=== PATIENT | female | born 1980 | race Caucasian/White ===

== ENCOUNTER 2016-09-15 14:34 | Emergency (ER) | payer OTHER ==
[2016-09-15 16:11] VITALS: BP 124/80
--- NOTE | 2016-09-15 16:16 | UC ---
Dental HPI - HPI Summary HPI Summary: worsening right upper and lower back molar dental pain---has an appointment with [facility] in 4 days - History of Current Complaint Chief Complaint: UCDentalProblem Stated Complaint: TOOTH,JAW,SINUS PAIN Time Seen by Provider: 09/15/16 16:04 Hx Obtained From: Patient Hx Last Menstrual Period: September 15 ?: No Onset/Duration: Sudden Onset, Lasting Days, Still Present Severity: Moderate Pain Intensity: 6 Pain Scale Used: 0-10 Numeric Aggravating: Heat, Cold, Chewing Related History: Previous Dental Care on Same Tooth - Allergies/Home Medications Allergies/Adverse Reactions: Allergies Allergy/AdvReac Type Severity Reaction Status Date / Time Adhesive Tape Allergy Rash Verified 07/11/16 12:02 NICOTINE PATCHES Allergy Rash Uncoded 07/11/16 12:02 Home Medications: Home Medications Buprenorphine HCl-Naloxone HCl [Suboxone 12-3 mg] 1 mis SL 09/15/16 [History] Divalproex Sodium [Depakote] 500 mg PO 09/15/16 [History] Levetiracetam [Keppra 500] 500 mg PO 09/15/16 [History] PMH/Surg Hx/FS Hx/Imm Hx Previously Healthy: No Endocrine History Of: Denies: Diabetes, Thyroid Disease Cardiovascular History Of: Denies: Cardiac Disorders, Hypertension, Pacemaker/ICD Respiratory History Of: Reports: Asthma Denies: COPD GI/ History Of: Denies: Ulcer, Renal Disease Neurological History Of: Reports: Seizures Denies: Dementia Psychological History Of: Reports: Anxiety, Depression, Bipolar Disorder Other History Of: Negative For: Anticoagulant Therapy - Surgical History Surgical History: Yes Surgery Procedure, Year, and Place: 3 C sections. TUBAL LIGATION - Family History Known Family History: Positive: Other - positive for substance abuse and schizophrenia - Social History Occupation: Unemployed Lives: Long-Term Alcohol Use: Occasionally Substance Use Type: Cocaine, Heroin, Marijuana Substance Use Comment - Amount & Last Used: rehab Smoking Status (MU): Light Every Day Tobacco Smoker Type: Cigarettes Amount Used/How Often: 1 ppd, 1-2 CIGS IN LAST FEW WEEKS Length of Time of Smoking/Using Tobacco: 3 years Have You Smoked in the Last Year: Yes Household Exposure Type: Cigarettes - Immunization History Most Recent Influenza Vaccination: unsure Most Recent Tetanus Shot: unsure Most Recent Pneumonia Vaccination: none Review of Systems Constitutional: Negative Skin: Negative Eyes: Negative ENT: Dental Pain Respiratory: Negative Cardiovascular: Negative Gastrointestinal: Negative Genitourinary: Negative Motor: Negative Neurovascular: Negative Musculoskeletal: Negative Neurological: Negative Psychological: Negative All Other Systems Reviewed And Are Negative: Yes Physical Exam Triage Information Reviewed: Yes Appearance: Well-Appearing, Well-Nourished, Pain Distress Vital Signs: Initial Vital Signs Temp 97.0 F 09/15/16 15:46 Pulse 84 09/15/16 15:46 Resp 16 09/15/16 15:46 BP 141/115 09/15/16 15:46 Pulse Ox 100 09/15/16 15:46 Vital Signs Reviewed: Yes Eye Exam: Normal Eyes: Positive: Conjunctiva Clear ENT Exam: Normal ENT: Positive: Normal ENT inspection, Hearing grossly normal, Pharynx normal, TMs normal. Negative: Nasal congestion, Nasal drainage, Tonsillar swelling, Muffled/hoarse voice Dental Exam: Other Dental: Positive: Gross Decay/Caries @ - right upper and lower molars Neck exam: Normal Neck: Positive: Supple, Nontender, No Lymphadenopathy Respiratory Exam: Normal Respiratory: Positive: Chest non-tender, Lungs clear, Normal breath sounds, No respiratory distress, No accessory muscle use Cardiovascular Exam: Normal Cardiovascular: Positive: RRR, No Murmur, Pulses Normal, Brisk Capillary Refill Abdominal Exam: Normal Abdomen Description: Positive: Nontender, No Organomegaly Bowel Sounds: Positive: Present Musculoskeletal Exam: Normal Musculoskeletal: Positive: Strength Intact, ROM Intact, No Edema Neurological Exam: Normal Neurological: Positive: Alert, Muscle Tone Normal Psychological Exam: Normal Skin Exam: Normal Dental Complaint Course/Dx - Course Course Of Treatment: amoxicillin and Ibuprofen, warm compress, follow with dentist as planned next week - Differential Dx/Diagnosis Differential Diagnosis/Dx: Dental Abscess, Dental Caries, Fractured Tooth, Odontogenic Pain, Peritonsillar Abcess Provider Diagnoses: Dental caries, nicotine dependant, substance aduse disorder in early remission Discharge - Discharge Plan Condition: Stable Disposition: HOME Prescriptions: Amoxicillin CAP* [Amoxicillin 500 MG CAP*] 500 mg PO TID #30 cap Ibuprofen TAB* [Motrin TAB* 800 MG] 800 mg PO Q8H PRN #40 tab PRN Reason: Pain Patient Education Materials: Dental Abscess (ED), Dental Caries (ED) Referrals: Mahendra Quintana MD [Primary Care Provider] - Additional Instructions: Follow at [facility] on Sunday as Planned
== END 2016-09-15 16:25 | disposition home or self-care (01) ==
LOC: UCEAST 14:34
DX: K02.9 Dental caries, unspecified (principal); F12.90 Cannabis use, unspecified, uncomplicated; F14.90 Cocaine use, unspecified, uncomplicated; F11.90 Opioid use, unspecified, uncomplicated; J45.909 Unspecified asthma, uncomplicated; R56.9 Unspecified convulsions; F17.210 Nicotine dependence, cigarettes, uncomplicated; Z91.048 Other nonmedicinal substance allergy status
CPT/HCPCS: 99212; G0463

== ENCOUNTER 2017-01-22 13:31 | Emergency (ER) | payer OTHER ==
[2017-01-22] MEDS ORDERED: Clindamycin CAP* 150 MG PO ONE (15:39)
--- NOTE | 2017-01-22 15:40 | UC ---
Dental HPI - HPI Summary HPI Summary: 36 y/o female presents to the urgent care c/o dental pain s/p molar extraction on 01/18/2017. Pt states her Dentist didn't Rx any ABX. This past Sunday she had fever of 101F, she took ibuprofen to alleviate symptoms. Her pain is mild today 4/10 associated w/ a AQUINO, However, she has a foul smell in her mouth w/ a yellowish discharge where molar was taken out . Pt denies SOB, chest pain, N/V/ D . Pt has not other complains - History of Current Complaint Chief Complaint: UCGeneralIllness Stated Complaint: DENTAL COMPLAINT Time Seen by Provider: 01/22/17 15:23 Hx Obtained From: Patient Hx Last Menstrual Period: 01/05/17 ?: No Onset/Duration: Gradual Onset, Lasting Days, Still Present Severity: Moderate Pain Intensity: 4 Pain Scale Used: 0-10 Numeric Aggravating: Chewing Alleviating: OTC Meds - Allergies/Home Medications Allergies/Adverse Reactions: Allergies Allergy/AdvReac Type Severity Reaction Status Date / Time Adhesive Tape Allergy Rash Verified 01/22/17 14:32 NICOTINE PATCHES Allergy Rash Uncoded 01/22/17 14:32 PMH/Surg Hx/FS Hx/Imm Hx Previously Healthy: Yes Respiratory History: Asthma Neurological History: Seizures Other History Of: Negative For: Anticoagulant Therapy - Surgical History Surgical History: Yes Surgery Procedure, Year, and Place: 3 C sections. TUBAL LIGATION - Family History Known Family History: Positive: Diabetes, Other Family History: positive for substance abuse and schizophrenia - Social History Occupation: Employed Full-time Lives: With Family Alcohol Use: Occasionally Substance Use Type: Cocaine, Heroin, Marijuana Substance Use Comment - Amount & Last Used: rehab Smoking Status (MU): Light Every Day Tobacco Smoker Type: Cigarettes Amount Used/How Often: 1 ppd, 1-2 CIGS IN LAST FEW WEEKS Length of Time of Smoking/Using Tobacco: 3 years Have You Smoked in the Last Year: Yes Household Exposure Type: Cigarettes - Immunization History Most Recent Influenza Vaccination: unsure Most Recent Tetanus Shot: unsure Most Recent Pneumonia Vaccination: none Review of Systems Constitutional: Negative Skin: Negative Eyes: Negative ENT: Other - Dental pain s/p molar extration Respiratory: Negative Cardiovascular: Negative Gastrointestinal: Negative Genitourinary: Negative Motor: Negative Neurovascular: Negative Musculoskeletal: Negative Neurological: Negative Psychological: Negative All Other Systems Reviewed And Are Negative: Yes Physical Exam Triage Information Reviewed: Yes Appearance: Well-Appearing, No Pain Distress, Well-Nourished, Obese Vital Signs: Initial Vital Signs Temp 97.2 F 01/22/17 14:27 Pulse 81 01/22/17 14:27 Resp 19 01/22/17 14:27 BP 108/76 01/22/17 14:27 Pulse Ox 98 01/22/17 14:27 Vital Signs Reviewed: Yes Eye Exam: Normal Eyes: Positive: Conjunctiva Clear - PERRLA, EOMI, fundi grossly normal ENT Exam: Normal ENT: Positive: Normal ENT inspection, Hearing grossly normal, Pharynx normal, TMs normal Dental: Positive: Percussion Tenderness @ - Pt with poor dental hygiene. RT upper jaw w/ mild erythema,swelling and mild purulent drainage at the site of molar #3 extration in the RT upper gum, tender to palpation. Molar #30 is fracture w/ gross decay in the RT lower gum. non tender to palpation or swelling. Neck exam: Normal Neck: Positive: Supple, Nontender, No Lymphadenopathy Respiratory Exam: Normal Respiratory: Positive: Chest non-tender, Lungs clear, Normal breath sounds Cardiovascular Exam: Normal Cardiovascular: Positive: RRR, No Murmur, Pulses Normal Abdominal Exam: Normal Abdomen Description: Positive: Nontender, No Organomegaly, Soft. Negative: CVA Tenderness (R), CVA Tenderness (L) Bowel Sounds: Positive: Present Musculoskeletal Exam: Normal Musculoskeletal: Positive: Strength Intact, ROM Intact, No Edema Neurological Exam: Normal Psychological Exam: Normal Skin Exam: Normal Dental Complaint Course/Dx - Course Course Of Treatment: . 36 y/o female presents to the urgent care c/o dental pain s/p molar extraction on 01/18/2017. Pt states her Dentist didn't Rx any ABX. This past Sunday she had fever of 101F, she took ibuprofen to alleviate symptoms. Her pain is mild today 4/10 associated w/ a AQUINO, However, she has a foul smell in her mouth w/ a yellowish discharge where molar was taken out . Pt denies SOB, chest pain, N/V/D Hx obtained. PE abnormal findings: Pt with poor dental hygiene. RT upper jaw w/ mild erythema,swelling and mild purulent drainage at the site of molar #3 extration in the RT upper gum, tender to palpation. Molar #30 is fracture w/ gross decay in the RT lower gum. non tender to palpation or swelling. PT Rx Clindamycin PO and Ibuprofen Po to alleviate symptoms. Advise to f/u with her dentist as soon as possible for further treatment. Pt understood and agreed. - Differential Dx/Diagnosis Differential Diagnosis/Dx: Dental Abscess, Dental Caries, Fractured Tooth, Gingivitis, Peridontic Disease, Post Extraction Pain Provider Diagnoses: 1- Acute dental pain s/p molar extraction Discharge - Discharge Plan Condition: Stable Disposition: HOME Prescriptions: Clindamycin Cap(NF) [Clindamycin Cap 300 mg Cap(NF)] 300 mg PO TID #21 cap Ibuprofen TAB* [Motrin TAB* 800 MG] 800 mg PO Q6H #20 tab Patient Education Materials: Toothache (ED) Referrals: Mahendra Quintana MD [Medical Doctor] - 1 Week Additional Instructions: Please take full course of antibiotic to avoid resistance. Take ibuprofen as instructed after meals to alleviate pain and swelling. Please f/u with your Dentist as soon as possible. If develop fever, chest pain despite taking medications please go to the ER immediately .
[2017-01-22 15:48] VITALS: BP 111/79
== END 2017-01-22 16:00 | disposition home or self-care (01) ==
LOC: UCEAST 13:31
DX: K08.89 Other specified disorders of teeth and supporting structures (principal); J45.909 Unspecified asthma, uncomplicated; R56.9 Unspecified convulsions; F14.90 Cocaine use, unspecified, uncomplicated; F12.90 Cannabis use, unspecified, uncomplicated; F11.90 Opioid use, unspecified, uncomplicated; F17.210 Nicotine dependence, cigarettes, uncomplicated
CPT/HCPCS: 99212; A9270-GY; G0463

== ENCOUNTER 2017-02-24 16:28 | Emergency (ER) | payer OTHER ==
[2017-02-24 18:02] VITALS: BP 114/70
[2017-02-24 20:11] LABS: Hematocrit 41 % (35-47); Hemoglobin 14.2 g/dl (12.0-16.0); Mean Corpuscular HGB Conc 35 g/dl (31-36); Mean Corpuscular Hemoglobin 31 pg (27-31); Mean Corpuscular Volume 91 fL (80-97); Mean Platelet Volume 8 um3 (7.4-10.4); Red Cell Distribution Width 14 % (10.5-15); White Blood Count 8.3 10^3/ul (3.5-10.8)
[2017-02-24 20:22] LABS: Urine Bacteria Absent (Absent); Urine Bilirubin Negative (Negative); Urine Glucose Negative (Negative); Urine Nitrite Negative (Negative)
[2017-02-24 20:25] LABS: ALT 47 U/L (7-52); AST 37 U/L (13-39); Alkaline Phosphatase 70 U/L (34-104); Anion Gap 5 mmol/L (2-11); Blood Urea Nitrogen 12 mg/dL (6-24); CO2 Carbon Dioxide 26 mmol/L (22-32); Calcium 9.2 mg/dL (8.6-10.3); Chloride 104 mmol/L (101-111); EGFR African American 137.5 (>60); EGFR Non-African American 106.9 (>60); Globulin 3.1 g/dL (2-4); Glucose 80 mg/dL (70-100); Potassium 4.1 mmol/L (3.5-5.0); Sodium 135 mmol/L (133-145); Total Protein 7.1 g/dL (6.4-8.9)
--- NOTE | 2017-02-24 20:29 | ED ---
GI/ HPI - HPI Summary HPI Summary: Pt here w/ vaginal bleeding x 2 weeks. Started as light bleeding which progressed to a heavier vaginal flow last night at midnight and finally slowed today around 16:00. Reports she passed a gold ball sized blood clot and was going through a pad and tampon every 20 minutes. Still has heavy bleeding but slowed to a super tampon and pad every hour now. H/o heavy bleeding in the past - took control for 2 months and was "good for a few years after that". She also reports mood swings, worse before period then normal once she starts and hotflashes. [facility] suggested hysterectomy which she did not want to try yet. Has not had U/S. Would be open to hormone therapy again. Family h/o both grandmother's going into early menopause and one requiring a uterine ablation which was successful. She herself is open to this. Denies ab pain, weakness, headache, chest pain. Has had some digestive issues recently and PCP has ordered a gallbladder U/S to assess. Her sx have been indigestion and alternating constipation w/ diarrhea. She denies nausea, vomiting. Had STD and testing as well as a pap smear last week at - all negative/normal as far as she knows. - History of Current Complaint Chief Complaint: EDGeneral Time Seen by Provider: 02/24/17 18:46 Stated Complaint: HEAVY VAG BLEEDING/CLOTS Hx Obtained From: Patient Hx Last Menstrual Period: 01/05/17 Pain Intensity: 5 - Allergy/Home Medications Allergies/Adverse Reactions: Allergies Allergy/AdvReac Type Severity Reaction Status Date / Time Adhesive Tape Allergy Rash Verified 02/24/17 17:22 NICOTINE PATCHES Allergy Rash Uncoded 02/24/17 17:22 PMH/Surg Hx/FS Hx/Imm Hx Previously Healthy: Yes Endocrine/Hematology History: Denies: Hx Anticoagulant Therapy, Hx Blood Disorders, Hx Blood Transfusions, Hx Diabetes, Hx Thyroid Disease, Hx Anemia, Hx Unexplained Bleeding, Hx Coagulopothy, Autoimmune Disease Cardiovascular History: Denies: Hx Hypertension, Hx Pacemaker/ICD Respiratory History: Reports: Hx Asthma Denies: Hx Chronic Obstructive Pulmonary Disease (COPD) GI History: Denies: Hx Ulcer History: Denies: Hx Renal Disease Sensory History: Denies: Hx Hearing Aid Neurological History: Reports: Hx Seizures Denies: Hx Dementia Psychiatric History: Reports: Hx Anxiety, Hx Attention Deficit Hyperactivity Disorder, Hx Depression, Hx Panic Disorder, Hx Post Traumatic Stress Disorder, Hx Community Mental Health Tx, Hx Bipolar Disorder, Hx of Violent Episodes Against Others, Hx Substance Abuse - suboxone x 11 months Denies: Hx Eating Disorder - Surgical History Surgery Procedure, Year, and Place: 3 C sections. TUBAL LIGATION - Immunization History Date of Tetanus Vaccine: unknown Infectious Disease History: No Infectious Disease History: Reports: Hx Hepatitis - hepatitis C Denies: Hx Clostridium Difficile, Hx Human Immunodeficiency Virus (HIV), Hx of Known/Suspected MRSA, Hx Shingles, Hx Tuberculosis, Hx Known/Suspected VRE, Hx Known/Suspected VRSA, History Other Infectious Disease, Traveled Outside the [place] in Last 30 Days - Family History Known Family History: Positive: Diabetes, Other Family History: positive for substance abuse and schizophrenia - Social History Lives: With Family Alcohol Use: Occasionally Hx Substance Use: Yes - h/o street drug use - sober x 11 months Substance Use Type: Reports: Prescribed Substance Use Comment - Amount & Last Used: suboxone Hx Tobacco Use: Yes Smoking Status (MU): Light Every Day Tobacco Smoker Type: Cigarettes Amount Used/How Often: 1 ppd, 1-2 CIGS IN LAST FEW WEEKS Length of Time of Smoking/Using Tobacco: 3 years Have You Smoked in the Last Year: Yes Review of Systems Constitutional: Other - see HPI Eyes: Negative Negative: Photophobia, Blurred Vision, Diplopia ENT: Negative Cardiovascular: Negative Respiratory: Negative Gastrointestinal: Other - see HPI Positive: see HPI Musculoskeletal: Negative Skin: Negative Neurological: Negative Psychological: Other - see HPI All Other Systems Reviewed And Are Negative: Yes Physical Exam Triage Information Reviewed: Yes Vital Signs On Initial Exam: Initial Vitals Temp Pulse Resp BP Pulse Ox 97.8 F 71 17 126/90 99 02/24/17 16:42 02/24/17 16:42 02/24/17 16:42 02/24/17 16:42 02/24/17 16:42 Vital Signs Reviewed: Yes Appearance: Positive: Well-Appearing, No Pain Distress, Well-Nourished Skin: Positive: Warm, Dry Head/Face: Positive: Normal Head/Face Inspection Eyes: Positive: Normal, EOMI, Conjunctiva Clear - anicteric sclera ENT: Positive: Hearing grossly normal Neck: Positive: Supple, Nontender Respiratory/Lung Sounds: Positive: Breath Sounds Present Cardiovascular: Positive: Normal Abdomen Description: Positive: Nontender, Soft Bowel Sounds: Positive: Present Musculoskeletal: Positive: Normal, Strength/ROM Intact Neurological: Positive: Normal, Sensory/Motor Intact, Alert, Oriented to Person Place, Time, CN Intact II-III Psychiatric: Positive: Anxious - but cooperative - Ana Coma Scale Coma Scale Total: 15 Diagnostics - Vital Signs Vital Signs Temp Pulse Resp BP Pulse Ox 02/24/17 18:00 60 96 02/24/17 17:30 62 114/70 96 02/24/17 17:22 65 98 02/24/17 17:20 139/95 02/24/17 16:42 97.8 F 71 17 126/90 99 - Laboratory Lab Results: Lab Results 02/24/17 02/24/17 02/24/17 Range/Units 20:03 20:03 20:03 WBC 8.3 (3.5-10.8) 10^3/ul RBC 4.50 (4.0-5.4) 10^6/ul Hgb 14.2 (12.0-16.0) g/dl Hct 41 (35-47) % MCV 91 (80-97) fL MCH 31 (27-31) pg MCHC 35 (31-36) g/dl RDW 14 (10.5-15) % Plt Count 397 (150-450) 10^3/ul MPV 8 (7.4-10.4) um3 Neut % (Auto) 34.0 L (38-83) % Lymph % (Auto) 52.5 H (25-47) % [place] % (Auto) 5.4 (1-9) % Eos % (Auto) 7.1 H (0-6) % Baso % (Auto) 1.0 (0-2) % Absolute Neuts (auto) 2.8 (1.5-7.7) 10^3/ul Absolute Lymphs (auto) 4.4 (1.0-4.8) 10^3/ul Absolute Monos (auto) 0.4 (0-0.8) 10^3/ul Absolute Eos (auto) 0.6 (0-0.6) 10^3/ul Absolute Basos (auto) 0.1 (0-0.2) 10^3/ul Absolute Nucleated RBC 0 10^3/ul Nucleated RBC % 0 INR (Anticoag Therapy) 0.96 (0.89-1.11) APTT 33.6 (26.0-36.3) seconds Urine Color Urine Appearance Urine pH (5-9) Ur Specific [place] (1.010-1.030) Urine Protein (Negative) Urine Ketones (Negative) Urine Blood (Negative) Urine Nitrate (Negative) Urine Bilirubin (Negative) Urine Urobilinogen (Negative) Ur Leukocyte Esterase (Negative) Urine WBC (Auto) (Absent) Urine RBC (Auto) (Absent) Ur Squamous Epith Cells (Absent) Urine Bacteria (Absent) Urine Glucose (Negative) Blood Type A Positive Antibody Screen Pending 02/24/17 Range/Units 20:10 WBC (3.5-10.8) 10^3/ul RBC (4.0-5.4) 10^6/ul Hgb (12.0-16.0) g/dl Hct (35-47) % MCV (80-97) fL MCH (27-31) pg MCHC (31-36) g/dl RDW (10.5-15) % Plt Count (150-450) 10^3/ul MPV (7.4-10.4) um3 Neut % (Auto) (38-83) % Lymph % (Auto) (25-47) % [place] % (Auto) (1-9) % Eos % (Auto) (0-6) % Baso % (Auto) (0-2) % Absolute Neuts (auto) (1.5-7.7) 10^3/ul Absolute Lymphs (auto) (1.0-4.8) 10^3/ul Absolute Monos (auto) (0-0.8) 10^3/ul Absolute Eos (auto) (0-0.6) 10^3/ul Absolute Basos (auto) (0-0.2) 10^3/ul Absolute Nucleated RBC 10^3/ul Nucleated RBC % INR (Anticoag Therapy) (0.89-1.11) APTT (26.0-36.3) seconds Urine Color Yellow Urine Appearance Clear Urine pH 7.0 (5-9) Ur Specific [place] 1.014 (1.010-1.030) Urine Protein Negative (Negative) Urine Ketones Trace H (Negative) Urine Blood 2+ H (Negative) Urine Nitrate Negative (Negative) Urine Bilirubin Negative (Negative) Urine Urobilinogen Negative (Negative) Ur Leukocyte Esterase Negative (Negative) Urine WBC (Auto) Trace(0-5/hpf) (Absent) Urine RBC (Auto) 3+(>10/hpf) H (Absent) Ur Squamous Epith Cells Present H (Absent) Urine Bacteria Absent (Absent) Urine Glucose Negative (Negative) Blood Type Antibody Screen Result Diagrams: 02/24/17 20:03 02/24/17 20:03 Lab Statement: Any lab studies that have been ordered have been reviewed, and results considered in the medical decision making process. GIGU Course/Dx - Course Course Of Treatment: Pt here w/ menorrhagia - vitals and labs WNL - TVUS report reviewed and reveals sonographic findings of endometrial polyp or submucosal endoluminal fibroid -more sinister etiologies cannot be ruled out - suggest hysteroscopy. Avascular echogenic collection in Rt ovary is most likely hemorrhagic follicle but an endometrioma could have similar appearance. F/u U/S in 6 weeks. Discussed results with pt who voices understanding and agrees to f/ u w/ [facility] Sunday for testing recommended by radiologist (I also agree these are warranted based on clinical presentation/HPI and family hx). Pt denies pain at this time. Reviewed danger s/sx fo when to return to ED. Pt agrees w/ plan. - Diagnoses Provider Diagnoses: Dysfunctional uterine bleeding, Abnormal ultrasound of uterus, Ovarian mass, right Discharge - Discharge Plan Condition: Stable Disposition: HOME Patient Education Materials: Dysfunctional Uterine Bleeding (ED) Referrals: Jerrod Liu MD [Medical Doctor] - Additional Instructions: You appear to have multiple abnormalities on your ultrasound of your uterus and ovary tonight. These may be the cause of your abnormal vaginal bleeding. It is important that you follow-up with [facility] this week - call Sunday to schedule an appointment. It is recommended that you have a hysteroscopy with biopsy as needed and a repeat ultrasound to reassess your right ovary. *If you develop heavier vaginal bleeding, abdominal or back pain, return to ED
--- NOTE | 2017-02-24 20:53 | RAD ---
INDICATION: Menorrhagia COMPARISON: Similar examination dated September 01, 2009 TECHNIQUE: Real-time transabdominal and transvaginal ultrasound examination of the female pelvis including grayscale and Doppler color flow imaging. FINDINGS: Uterus: Uterus measures 10.3 x 3.7 x 4.7 cm. Endometrial stripe measures up to 16 mm millimeters in thickness. Abutting the mid-level endometrium is an isoechoic structure along the anterior margin of the endometrial lumen measuring 1.3 cm in greatest dimension and exhibiting increased vascularity. Ovaries: The right and left ovary measure 2.2 x 2.2 x 3.8 cm and 1.4 x 1.4 x 2.1 cm., respectively. Normal arterial and venous waveforms are identified. Within the right ovary there is an echogenic and avascular structure measuring 2.2 x 2.4 x 2.1 cm that was not seen on the previous ultrasound. There is no free fluid in the cul-de-sac. IMPRESSION: 1. Sonographic findings are consistent with either endometrial polyp or submucosal endoluminal fibroid. More sinister etiologies are not entirely ruled out but are considered much less likely. Definitive characterization will likely be made during hysteroscopy. 2. Avascular an echogenic collection in the right ovary is most likely a hemorrhagic follicle but an endometrioma could have a similar appearance. If clinically warranted follow-up ultrasound in 6 weeks can determine resolution.
[2017-02-24 20:56] LABS: TSH (Thyroid Stimulating Horm) 2.27 mcIU/mL (0.34-5.60)
== END 2017-02-24 22:34 | disposition home or self-care (01) ==
LOC: ED 16:28
DX: N93.8 Other specified abnormal uterine and vaginal bleeding (principal); R93.8 Abnormal findings on diagnostic imaging of other specified body structures; R19.09 Other intra-abdominal and pelvic swelling, mass and lump; F41.9 Anxiety disorder, unspecified; F90.9 Attention-deficit hyperactivity disorder, unspecified type; J45.909 Unspecified asthma, uncomplicated; F32.9 Major depressive disorder, single episode, unspecified; N92.0 Excessive and frequent menstruation with regular cycle
CPT/HCPCS: 36415; 76830; 80053; 81003; 81015; 83605; 84443; 84702; 85025; 85610; 85730; 86850; 86900; 86901; 99283

== ENCOUNTER 2017-12-18 21:41 | Inpatient (IN) | payer OTHER ==
[2017-12-18] MEDS ORDERED: NS 0.9% 1000 ML* 2,000 ML IV ONE (21:45)
[2017-12-18 22:07] LABS: ABS Basophils 0 10^3/ul (0-0.2); ABS Eosinophils 0.2 10^3/ul (0-0.6); ABS Lymphocytes 2.6 10^3/ul (1.0-4.8); ABS Monocytes 0.5 10^3/ul (0-0.8); ABS Neutrophils 12.1 10^3/ul (1.5-7.7); ABS Nucleated RBC 0 10^3/ul; Hematocrit 31 % (35-47); Lymphocyte % 16.8 % (25-47); Mean Corpuscular HGB Conc 32 g/dl (31-36); Mean Corpuscular Hemoglobin 27 pg (27-31); Mean Corpuscular Volume 84 fL (80-97); Nucleated Red Blood Cells % 0; Platelet Count 489 10^3/ul (150-450); Red Blood Count 3.75 10^6/ul (4.00-5.40); Red Cell Distribution Width 16 % (10.5-15); White Blood Count 15.4 10^3/ul (3.5-10.8)
[2017-12-18 22:19] LABS: INR 1.04 (0.77-1.02)
[2017-12-18 22:23] LABS: EGFR Non-African American 56.9 (>60)
[2017-12-18] MEDS ORDERED: Acetaminophen ADULT LIQ* 650 MG/20.3 ML UDC NG TUBE PRN (22:30)
[2017-12-18] MEDS ORDERED: Ondansetron INJ* 2 MG/ML VIAL IV PRN (22:44)
[2017-12-18] MEDS ORDERED: Midazolam* 1 MG/ML 2 ML VIAL (2 MG) IV PRN (22:49)
[2017-12-18 22:58] LABS: Urine Appearance Cloudy; Urine Blood 2+ (Negative); Urine Color Yellow; Urine Ketones Negative (Negative); Urine Protein 3+(>=500 mg/dL) (Negative); Urine Specific Gravity 1.009 (1.010-1.030); Urine Urobilinogen Negative (Negative)
[2017-12-19] MEDS: NS 0.9% 1000 ML* 1,000 ML IV SCH ×5 (00:30→06:14)
[2017-12-19] MEDS ORDERED: NS 0.9% 1000 ML* 2,000 ML IV ONE (01:38)
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
[2017-12-19] MEDS ORDERED: NS 0.9% 1000 ML* 1,000 ML IV ONE ×2 (03:45→08:33)
[2017-12-19 04:49] LABS: ABS Basophils 0 10^3/ul (0-0.2); ABS Eosinophils 0 10^3/ul (0-0.6); ABS Lymphocytes 0.4 10^3/ul (1.0-4.8); ABS Monocytes 0.4 10^3/ul (0-0.8); ABS Neutrophils 9.8 10^3/ul (1.5-7.7); ABS Nucleated RBC 0 10^3/ul; Eosinophil % 0.1 % (0-6); Hematocrit 33 % (35-47); Hemoglobin 10.5 g/dl (12.0-16.0); Lymphocyte % 3.7 % (25-47); Mean Corpuscular HGB Conc 32 g/dl (31-36); Mean Corpuscular Hemoglobin 26 pg (27-31); Mean Corpuscular Volume 81 fL (80-97); Mean Platelet Volume 7.3 um3 (7.4-10.4); Nucleated Red Blood Cells % 0; Platelet Count 322 10^3/ul (150-450); Red Blood Count 4.02 10^6/ul (4.00-5.40); Red Cell Distribution Width 16 % (10.5-15); White Blood Count 10.6 10^3/ul (3.5-10.8)
[2017-12-19 04:54] LABS: INR 1.15 (0.77-1.02)
[2017-12-19] MEDS: Heparin VIAL(*) 5000 UNITS/ML VIAL (FIVE THOUSAND) SUBCUT SCH ×3 (06:10→22:10)
--- NOTE | 2017-12-19 06:27 | ED ---
Phil Carreno Tiffany, scribed for Stephan Clifford MD on 12/18/17 at 2224 . Substance Abuse/Use - HPI Summary HPI Summary: 37 y/o F BIB EMS to [facility] complains of heroin overdose since minutes ago. Symptoms aggravated by nothing. Symptoms alleviated by nothing. Per EMS, hotel staff found patient on hotel bathroom floor in cardiac arrest. Per hotel staff, patient was responsive for about 15 minutes prior to EMS arrival. Upon EMS arrival, patient was asystole and breathless. EMS performed CPR for about 5 minutes, patient with pulse, intubated in the field. EMS administered Narcan and epinephrine. CO2 reading in field after intubation was 120, EMS gave 1 amp bicarb. Upon EMS arrival to ED, patient is unresponsive and intubated. - History Of Current Complaint Chief Complaint: EDSubstanceAbuse Stated Complaint: UNRESPONSIVE Time Seen by Provider: 12/18/17 21:58 Hx Obtained From: EMS, Other: - hotel staff Hx From Patient Unobtainable Due To: Other - unresponsive Aggravating Factor(s): Nothing Alleviating Factor(s): Nothing - Allergies/Home Medications Allergies/Adverse Reactions: Allergies Allergy/AdvReac Type Severity Reaction Status Date / Time Adhesive Tape Allergy Rash Verified 02/24/17 17:22 NICOTINE PATCHES Allergy Rash Uncoded 02/24/17 17:22 Home Medications: Home Medications NK [No Home Medications Reported] 12/18/17 [History Confirmed 12/18/17] PMH/Surg Hx/FS Hx/Imm Hx Previously Healthy: No Respiratory History: Reports: Hx Asthma Denies: Hx Chronic Obstructive Pulmonary Disease (COPD) Neurological History: Reports: Hx Seizures Psychiatric History: Reports: Hx Anxiety, Hx Attention Deficit Hyperactivity Disorder, Hx Depression, Hx Panic Disorder, Hx Post Traumatic Stress Disorder, Hx Inpatient Treatment, Hx Community Mental Health Tx, Hx Bipolar Disorder, Hx of Violent Episodes Against Others, Hx Substance Abuse - polysubstance dependence, Other Psychiatric Issues/Disorders - suicidal behavior Denies: Hx Eating Disorder - Surgical History Surgery Procedure, Year, and Place: 3 C-sections. Tubal ligation Infectious Disease History: No Infectious Disease History: Denies: Traveled Outside the [place] in Last 30 Days - Family History Known Family History: Positive: Diabetes, Other - Bipolar disorder, substance abuse, suicide attempt, schizophrenia - Social History Alcohol Use: Occasionally Hx Substance Use: Yes Substance Use Type: Reports: Heroin, Marijuana, Other - opioid Review of Systems Positive: Other - tachycardic Positive: Other - patient is intubated Positive: Other - heroin overdose All Other Systems Reviewed And Are Negative: Yes Physical Exam - Summary Physical Exam Summary: VITAL SIGNS: Reviewed. GENERAL: Patient is a well-developed and nourished female who is lying comfortable in the stretcher. Patient is not in any acute respiratory distress. There are no signs of trauma. HEAD AND FACE: No signs of trauma. No ecchymosis, hematomas or skull depressions. No sinus tenderness. EYES: Eyes are fixed and dilated. There is no corneal reflex EARS: Hearing grossly intact. Ear canals and tympanic membranes are within normal limits. MOUTH: Oropharynx within normal limits. NECK: Supple, trachea is midline, no adenopathy, no JVD, no carotid bruit, no c- spine tenderness, neck with full ROM. CHEST: Symmetric, no tenderness at palpation LUNGS: Good breath sounds on ventilaor CVS: Tachycardic ABDOMEN: Soft, non-tender. No signs of distention. No rebound no guarding, and no masses palpated. Bowel sounds are normal. EXTREMITIES: FROM in all major joints, no edema, no cyanosis or clubbing. NEURO: Patient is unresponsive SKIN: Dry and warm Triage Information Reviewed: Yes Vital Signs On Initial Exam: Initial Vitals Pulse BP Pulse Ox 152 84/41 99 12/18/17 21:42 12/18/17 21:42 12/18/17 21:42 Vital Signs Reviewed: Yes Procedures - Procedure Summary Procedure Summary: IJ central line was placed, ultrasound guided. Good blood return to all ports. Blood flushed easily Diagnostics - Vital Signs Vital Signs Temp Pulse Resp BP Pulse Ox 12/18/17 21:45 97.8 F 140 24 87/47 100 12/18/17 21:42 152 84/41 99 - Laboratory Lab Results: Lab Results 12/18/17 12/18/17 Range/Units 21:53 21:55 WBC 15.4 H (3.5-10.8) 10^3/ul RBC 3.75 L (4.00-5.40) 10^6/ul Hgb 10.0 L (12.0-16.0) g/dl Hct 31 L (35-47) % MCV 84 (80-97) fL MCH 27 (27-31) pg MCHC 32 (31-36) g/dl RDW 16 H (10.5-15) % Plt Count 489 H (150-450) 10^3/ul MPV 8.0 (7.4-10.4) um3 Neut % (Auto) 78.4 (38-83) % Lymph % (Auto) 16.8 L (25-47) % Gage % (Auto) 3.5 (0-7) % Eos % (Auto) 1.0 (0-6) % Baso % (Auto) 0.3 (0-2) % Absolute Neuts (auto) 12.1 H (1.5-7.7) 10^3/ul Absolute Lymphs (auto) 2.6 (1.0-4.8) 10^3/ul Absolute Monos (auto) 0.5 (0-0.8) 10^3/ul Absolute Eos (auto) 0.2 (0-0.6) 10^3/ul Absolute Basos (auto) 0 (0-0.2) 10^3/ul Absolute Nucleated RBC 0 10^3/ul Nucleated RBC % 0 Patient Temperature 37.7 ABG pH Pending ABG pH (Temp Correct) Pending ABG pCO2 Pending ABG pCO2 (Temp Corrct Pending ABG pO2 Pending ABG pO2 (Temp Correct Pending ABG HCO3 Pending ABG O2 Saturation Pending ABG Base Excess Pending Respiration Rate 20 O2 Delivery Device vent Ventilator Type 450 Vent Mode cmv FiO2 100 Inspiratory Time 1.0 PEEP 5 Pressure Support Not Reportable Pressure Control Not Reportable EPAP Not Reportable IPAP Not Reportable BiPAP Not Reportable Result Diagrams: 12/18/17 21:53 12/18/17 21:53 Lab Statement: Any lab studies that have been ordered have been reviewed, and results considered in the medical decision making process. - Radiology CXR Radiology Interpretation Completed By: ED Physician - Central line placement, tip distal IDC. No pneumothorax. Pending official report. - CT Brain CT Interpretation Completed By: Radiologist - 1. Sinus fluid as noted. Differential includes sinusitis and post traumatic fluid. 2. > FINDING CONSIDERED CRITICAL TO PATIENT CARE: The ventricles are small in size. Baptiste- arsen junction is indistinct diffusely. Perimesencephalic cisterns are in completely demonstrated. Prepontine cistern is also NOT well visualized. Critical findings suggest moderate to marked hypoxic/ischemic changes. Trace amount of subarachnoid blood NOT excluded in the pre-pontine area though this finding may be seen with increased intracranial pressure and secondary to changes from venous plexus. Please correlated with any known history and/or clinical findings. If further evaluation is felt to be indicated, follow-up should be considered with MRI. ED physician has reviewed this report. - EKG 22:36 Cardiac Rate: Tachycardia - 144 BPM EKG Rhythm: Sinus Tachycardia Course/Dx - Course Course Of Treatment: 37 y/o F BIB EMS to [facility] complains of heroin overdose since minutes ago. Pt in cardiac arrest upon EMS arrival. Upon EMS arrival to ED , patient is unresponsive and intubated. Bloodwork obtained. EKG, CT Brain obtained. IJ central line placed. CXR obtained. Patient admitted to [facility], at [facility] - Diagnoses Provider Diagnoses: Cardiac arrest, Drug overdose, Brain edema - Physician Notifications Discussed Care Of Patient With: Mahendra Quintana Time Discussed With Above Provider: 22:44 Instructed by Provider To: Other - [facility], agrees to admit patient to [facility] - Critical Care Time Critical Care Time: 30-74 min - CCT 50 minutes Discharge - Sign-Out/Discharge Documenting (check all that apply): Discharge/Admit/Transfer - Admit to [facility] - Discharge Plan Condition: Critical Disposition: ADMITTED TO [facility] documentation as recorded by the Phil boyd Tiffany accurately reflects the service I personally performed and the decisions made by , Stephan Clifford MD.
--- NOTE | 2017-12-19 07:03 | RAD ---
INDICATION: Overdose COMPARISON: Chest x-ray 2014 TECHNIQUE: An AP portable view obtained at 2217 hours is submitted. FINDINGS: Bones/Soft Tissues: There are no acute bony findings. Endotracheal and orogastric tubes appear appropriately positioned Cardiomediastinal: The cardiomediastinal silhouette is normal. Lungs: No focal consolidative changes.. Pleura: There are no pleural effusions. Other: None IMPRESSION: ENDOTRACHEAL AND OROGASTRIC TUBES APPROPRIATE POSITION. LUNGS GROSSLY CLEAR
--- NOTE | 2017-12-19 07:18 | RAD ---
INDICATION: Unresponsive COMPARISON: Chest x-ray 2014 TECHNIQUE: An AP supine view is submitted. FINDINGS: Bones/Soft Tissues: There are no acute bony findings. Endotracheal and orogastric tubes appear normally positioned. There is nodular catheter in the superior vena cava Cardiomediastinal: The cardiomediastinal silhouette is normal. Lungs: There is mild diffuse interstitial change. This could represent mild interstitial edema. There are presumed skin folds but no definitive pneumothorax.. Pleura: There are no significant effusions. Other: None IMPRESSION: SUSPECT MILD INTERSTITIAL CONGESTION. TUBES AND CATHETERS IN APPROPRIATE POSITION.
--- NOTE | 2017-12-19 07:20 | RAD ---
INDICATION: Unresponsive. Overdose. COMPARISON: Chest x-ray December 18, 2017 TECHNIQUE: An AP portable supine view obtained at 0018 hours is submitted. FINDINGS: Bones/Soft Tissues: There are no acute bony findings. There is right IJ catheter in the superior vena cava. Endotracheal tube is 4 cm above the jacklyn. The proximal aspect of the nasogastric tube appears normal. The tip is not included in the [id number] Cardiomediastinal: The heart is normal in size. Central pulmonary vessels and interstitium are prominent. Lungs: There are developing bilateral alveolar opacities. Pleura: The costophrenic angles are not included in the [id number]. Other: None IMPRESSION: WORSENING AERATION WITH PROGRESSIVE INTERSTITIAL CHANGE AND DEVELOPING ALVEOLAR OPACITIES.
--- NOTE | 2017-12-19 09:21 | PN ---
Date of Service: 12/19/17 - [facility] progress note Critical Care Services: 37 y/o F with h/o polysubstance abuse, psychiatric illness, prior hospitalization to mental health unit, BIB EMS to [facility] after heroin overdose. Per EMS, hotel staff found patient on hotel bathroom floor with cardiac arrest. Per hotel staff, patient was responsive for about 15 minutes prior to EMS arrival. Upon EMS arrival, patient was found to be in asystole and apneic. EMS performed CPR for about 5 minutes, with return of circulation, intubated in the field. EMS administered Narcan and epinephrine. CO2 reading in field after intubation was 120, EMS gave 1 amp bicarb. Patient is unresponsive and tachycardic with BP systolic of 84 and MAP of 49. Patient with dilated pupils, no corneal reflex, no gag reflex. She was maintained euthermic overnight. Received 2mg of Versed once, not receiving any other sedation. CT brain showed loss of delgado-white junction effacement, diffuse cerebral edema. No other acute changes in status since last night. Is euthermic, BP slightly low this morning, 1L fluid bolus ordered. Vital Signs: Temp Pulse Resp BP SpO2 FiO2 96.3 F 87 20 75/51 99 70 12/19/17 09:00 12/19/17 09:00 12/19/17 09:00 12/19/17 09:00 12/19/17 09:00 12/19 08:00 Physical Exam: Gen: Pt is unresponsive to painful stimuli HEENT: Pupils dilated, unresponsive, ETT in place, OGT in place Lungs: Diminished air entry, rhonchi present Cardiac: S1, S2+, regular Abdomen: Soft, bowel sounds diminished to absent Extremities: No edema, no response to painful stimuli Neuro: No response to painful stimuli, pupils dilated, no gag reflex Skin: Track dias on extremities IV access: Rt IJ CVC Fluid Balance (Past 24 Hours): I= 2962 O= 1734 Net 1228 Intake & Output 12/17/17 12/18/17 12/19/17 12/20/17 06:59 06:59 06:59 06:59 Intake Total 2962 Output Total 1734 400 Balance 1228 -400 Weight 132 lb 11.492 oz Intake: IV Fluids 2962 NS (0.9%) 2962 Oral 0 Output: NG Tube Drainage Amount 500 Urine 179 Boyd 1055 400 Other: # Bowel Movements 0 Labs: Laboratory Results - last 24 hr 12/18/17 12/18/17 12/18/17 21:52 21:53 21:53 WBC 15.4 H RBC 3.75 L Hgb 10.0 L Hct 31 L MCV 84 MCH 27 MCHC 32 RDW 16 H Plt Count 489 H MPV 8.0 Neut % (Auto) 78.4 Lymph % (Auto) 16.8 L Benson % (Auto) 3.5 Eos % (Auto) 1.0 Baso % (Auto) 0.3 Absolute Neuts (auto) 12.1 H Absolute Lymphs (auto) 2.6 Absolute Monos (auto) 0.5 Absolute Eos (auto) 0.2 Absolute Basos (auto) 0 Absolute Nucleated RBC 0 Nucleated RBC % 0 INR (Anticoag Therapy) APTT Patient Temperature ABG pH ABG pH (Temp Correct) ABG pCO2 ABG pCO2 (Temp Corrct ABG pO2 ABG pO2 (Temp Correct ABG HCO3 ABG O2 Saturation ABG Base Excess Respiration Rate O2 Delivery Device Ventilator Type Vent Mode FiO2 Inspiratory Time PEEP Pressure Support Pressure Control EPAP IPAP BiPAP Sodium Potassium Chloride Carbon Dioxide Anion Gap BUN Creatinine Est GFR ( Amer) Est GFR (Non-Af Amer) BUN/Creatinine Ratio Glucose Lactic Acid Calcium Phosphorus Magnesium Total Bilirubin Direct Bilirubin Indirect Bilirubin AST ALT Alkaline Phosphatase Total Creatine Kinase Troponin I Total Protein Albumin Globulin Albumin/Globulin Ratio TSH Beta HCG, Quant Urine Color Yellow Urine Appearance Cloudy Urine pH 6.0 Ur Specific Golf 1.009 L Urine Protein 3+(>=500 mg/dl) A Urine Ketones Negative Urine Blood 2+ A Urine Nitrate Negative Urine Bilirubin Negative Urine Urobilinogen Negative Ur Leukocyte Esterase Negative Urine WBC (Auto) 3+(>20/hpf) A Urine RBC (Auto) 3+(>10/hpf) A Ur Squamous Epith Cells Present A Urine Bacteria 1+ A Urine Glucose 3+(>=500 mg/dl) A Salicylates Urine Opiates Screen Presumptive positive A Acetaminophen Ur Barbiturates Screen None detected Ur Phencyclidine Scrn None detected Ur Amphetamines Screen None detected U Benzodiazepines Scrn None detected Urine Cocaine Screen Presumptive positive A U Cannabinoids Screen None detected Serum Alcohol 12/18/17 12/18/17 12/18/17 21:53 21:53 21:53 WBC RBC Hgb Hct MCV MCH MCHC RDW Plt Count MPV Neut % (Auto) Lymph % (Auto) Benson % (Auto) Eos % (Auto) Baso % (Auto) Absolute Neuts (auto) Absolute Lymphs (auto) Absolute Monos (auto) Absolute Eos (auto) Absolute Basos (auto) Absolute Nucleated RBC Nucleated RBC % INR (Anticoag Therapy) 1.04 H APTT 51.9 H Patient Temperature ABG pH ABG pH (Temp Correct) ABG pCO2 ABG pCO2 (Temp Corrct ABG pO2 ABG pO2 (Temp Correct ABG HCO3 ABG O2 Saturation ABG Base Excess Respiration Rate O2 Delivery Device Ventilator Type Vent Mode FiO2 Inspiratory Time PEEP Pressure Support Pressure Control EPAP IPAP BiPAP Sodium 139 Potassium 4.3 Chloride 101 Carbon Dioxide 19 L Anion Gap 19 H BUN 9 Creatinine 1.23 H Est GFR ( Amer) 68.8 Est GFR (Non-Af Amer) 56.9 BUN/Creatinine Ratio 7.3 L Glucose 333 H Lactic Acid 11.4 H* Calcium 8.2 L Phosphorus Magnesium Total Bilirubin 0.40 Direct Bilirubin Indirect Bilirubin AST 256 H ALT 119 H Alkaline Phosphatase 183 H Total Creatine Kinase Troponin I Total Protein 5.4 L Albumin 3.0 L Globulin 2.4 Albumin/Globulin Ratio 1.3 TSH 3.56 Beta HCG, Quant < 0.60 Urine Color Urine Appearance Urine pH Ur Specific Golf Urine Protein Urine Ketones Urine Blood Urine Nitrate Urine Bilirubin Urine Urobilinogen Ur Leukocyte Esterase Urine WBC (Auto) Urine RBC (Auto) Ur Squamous Epith Cells Urine Bacteria Urine Glucose Salicylates < 2.50 Urine Opiates Screen Acetaminophen < 15 Ur Barbiturates Screen Ur Phencyclidine Scrn Ur Amphetamines Screen U Benzodiazepines Scrn Urine Cocaine Screen U Cannabinoids Screen Serum Alcohol < 10 12/18/17 12/18/17 12/19/17 21:55 23:35 00:42 WBC RBC Hgb Hct MCV MCH MCHC RDW Plt Count MPV Neut % (Auto) Lymph % (Auto) Benson % (Auto) Eos % (Auto) Baso % (Auto) Absolute Neuts (auto) Absolute Lymphs (auto) Absolute Monos (auto) Absolute Eos (auto) Absolute Basos (auto) Absolute Nucleated RBC Nucleated RBC % INR (Anticoag Therapy) APTT Patient Temperature 37.7 Not Reportable ABG pH 7.13 L* 7.20 L ABG pH (Temp Correct) Not Reportable Not Reportable ABG pCO2 56 H 66 H ABG pCO2 (Temp Corrct Not Reportable Not Reportable ABG pO2 280 H 83 ABG pO2 (Temp Correct Not Reportable Not Reportable ABG HCO3 16.7 L 22.1 ABG O2 Saturation 100.1 H 96.8 ABG Base Excess -10.5 L -3.5 L Respiration Rate 20 20 O2 Delivery Device vent vent Ventilator Type 450 Not Reportable Vent Mode cmv pcv FiO2 100 70 Inspiratory Time 1.0 Not Reportable PEEP 5 5 Pressure Support Not Reportable Not Reportable Pressure Control Not Reportable 30 EPAP Not Reportable Not Reportable IPAP Not Reportable Not Reportable BiPAP Not Reportable Not Reportable Sodium Potassium Chloride Carbon Dioxide Anion Gap BUN Creatinine Est GFR ( Amer) Est GFR (Non-Af Amer) BUN/Creatinine Ratio Glucose Lactic Acid Calcium Phosphorus Magnesium Total Bilirubin Direct Bilirubin Indirect Bilirubin AST ALT Alkaline Phosphatase Total Creatine Kinase 4402 H Troponin I 0.42 H* Total Protein Albumin Globulin Albumin/Globulin Ratio TSH Beta HCG, Quant Urine Color Urine Appearance Urine pH Ur Specific Golf Urine Protein Urine Ketones Urine Blood Urine Nitrate Urine Bilirubin Urine Urobilinogen Ur Leukocyte Esterase Urine WBC (Auto) Urine RBC (Auto) Ur Squamous Epith Cells Urine Bacteria Urine Glucose Salicylates Urine Opiates Screen Acetaminophen Ur Barbiturates Screen Ur Phencyclidine Scrn Ur Amphetamines Screen U Benzodiazepines Scrn Urine Cocaine Screen U Cannabinoids Screen Serum Alcohol 12/19/17 12/19/17 12/19/17 00:42 04:30 04:30 WBC 10.6 RBC 4.02 Hgb 10.5 L Hct 33 L MCV 81 MCH 26 L MCHC 32 RDW 16 H Plt Count 322 MPV 7.3 L Neut % (Auto) 92.7 H Lymph % (Auto) 3.7 L Benson % (Auto) 3.4 Eos % (Auto) 0.1 Baso % (Auto) 0.1 Absolute Neuts (auto) 9.8 H Absolute Lymphs (auto) 0.4 L Absolute Monos (auto) 0.4 Absolute Eos (auto) 0 Absolute Basos (auto) 0 Absolute Nucleated RBC 0 Nucleated RBC % 0 INR (Anticoag Therapy) 1.15 H APTT Patient Temperature ABG pH ABG pH (Temp Correct) ABG pCO2 ABG pCO2 (Temp Corrct ABG pO2 ABG pO2 (Temp Correct ABG HCO3 ABG O2 Saturation ABG Base Excess Respiration Rate O2 Delivery Device Ventilator Type Vent Mode FiO2 Inspiratory Time PEEP Pressure Support Pressure Control EPAP IPAP BiPAP Sodium Potassium Chloride Carbon Dioxide Anion Gap BUN Creatinine Est GFR ( Amer) Est GFR (Non-Af Amer) BUN/Creatinine Ratio Glucose Lactic Acid 1.4 Calcium Phosphorus Magnesium Total Bilirubin Direct Bilirubin Indirect Bilirubin AST ALT Alkaline Phosphatase Total Creatine Kinase Troponin I Total Protein Albumin Globulin Albumin/Globulin Ratio TSH Beta HCG, Quant Urine Color Urine Appearance Urine pH Ur Specific Golf Urine Protein Urine Ketones Urine Blood Urine Nitrate Urine Bilirubin Urine Urobilinogen Ur Leukocyte Esterase Urine WBC (Auto) Urine RBC (Auto) Ur Squamous Epith Cells Urine Bacteria Urine Glucose Salicylates Urine Opiates Screen Acetaminophen Ur Barbiturates Screen Ur Phencyclidine Scrn Ur Amphetamines Screen U Benzodiazepines Scrn Urine Cocaine Screen U Cannabinoids Screen Serum Alcohol 12/19/17 12/19/17 04:30 06:35 WBC RBC Hgb Hct MCV MCH MCHC RDW Plt Count MPV Neut % (Auto) Lymph % (Auto) Benson % (Auto) Eos % (Auto) Baso % (Auto) Absolute Neuts (auto) Absolute Lymphs (auto) Absolute Monos (auto) Absolute Eos (auto) Absolute Basos (auto) Absolute Nucleated RBC Nucleated RBC % INR (Anticoag Therapy) APTT Patient Temperature Not Reportable ABG pH 7.36 ABG pH (Temp Correct) ABG pCO2 36 ABG pCO2 (Temp Corrct ABG pO2 171 H ABG pO2 (Temp Correct ABG HCO3 21.4 ABG O2 Saturation 99.4 H ABG Base Excess -4.6 L Respiration Rate Not Reportable O2 Delivery Device Not Reportable Ventilator Type Not Reportable Vent Mode Not Reportable FiO2 Not Reportable Inspiratory Time Not Reportable PEEP Not Reportable Pressure Support Not Reportable Pressure Control Not Reportable EPAP Not Reportable IPAP Not Reportable BiPAP Not Reportable Sodium 146 H Potassium 4.3 Chloride 117 H Carbon Dioxide 24 Anion Gap 5 BUN 15 Creatinine 1.02 H Est GFR ( Amer) 73.8 Est GFR (Non-Af Amer) 61.0 BUN/Creatinine Ratio 14.7 Glucose 103 H Lactic Acid Calcium 6.7 L Phosphorus 4.0 Magnesium 1.6 L Total Bilirubin 0.40 Direct Bilirubin 0.20 H Indirect Bilirubin 0.2 L AST 454 H ALT 147 H Alkaline Phosphatase 166 H Total Creatine Kinase Troponin I Total Protein 5.0 L Albumin 2.7 L Globulin 2.3 Albumin/Globulin Ratio 1.2 TSH Beta HCG, Quant Urine Color Urine Appearance Urine pH Ur Specific Golf Urine Protein Urine Ketones Urine Blood Urine Nitrate Urine Bilirubin Urine Urobilinogen Ur Leukocyte Esterase Urine WBC (Auto) Urine RBC (Auto) Ur Squamous Epith Cells Urine Bacteria Urine Glucose Salicylates Urine Opiates Screen Acetaminophen Ur Barbiturates Screen Ur Phencyclidine Scrn Ur Amphetamines Screen U Benzodiazepines Scrn Urine Cocaine Screen U Cannabinoids Screen Serum Alcohol Studies: CXR: Mild prominence of interstitium, ETT in place Nutrition: NPO Impression: 37 y o f with polysubstance abuse, possible lupus admitted after found to be unresponsive in hotel floor after possibly injecting cocaine, drug screen also positive for opiates. Pt was found to be apneic and pulseless when EMS arrived, CPR performed for 5 min with return of spontaneous circulation was intubated and transferred to ED. Patient with no evidence of brain stem function, remains intubated on full support 1. Cardiac arrest after Cocaine overdose 2. Possible suicide attempt, h/o psychiatric illness and prior hospitalization to mental health unit 3. Possible brain after hypoxemic insult, awaiting confirmation 4. Hypercapnic resp failure s/p cardiac arrest, eucapnic on ventilator Plan: 1. Neuro: Patient is intubated. No brain stem reflexes noted. Is apneic without vent support. Neuro consult requested. Urine screen positive for Opiates and Cocaine, will reassess in few hours. Not receiving any sedation. Pupils dilated and unresponsive. CT brain showed diffuse cerebral edema suggestive of hypoxic insult. Will obtain EEG and might consider cerebral imaging if needed 2. Resp: On full vent support. Will perform apnea testing if brain is confirmed. Continue with full support for now. Had rhonchi on auscultation this morning, will order nebs. CXR showed prominence of interstitium, on positive fluid balance, will consider lasix if BP remains stable. Pulm toilet. FiO2 requirements reasonable. Will obtain ABG prior to apnea testing. 3.CVS: Has not needed vasopressor support however BP slightly low this am. Ordered 1L fluid bolus. Will start pressors if remains low and didnot respond to fluid bolus. 4. Renal: Sodium slightly elevated, no other electrolyte abnormalities this am, will rpt BMP in few hours. Urine out has been stable. Lactic acid normalized 5. GI: Will c/w NPO status pending further assessment of neurological status. GI ppx. Elevated LFTs likely sec to shock liver. Hypoalbuminemia, likely nutritional 6. Endocrine: No h/o DM, will monitor BS closely 7. Haem: Normocytic anemia, no leucocytosis 8. ID: No signs of sepsis or concern with infection. Will hold off on abx 9. Musculoskeltal: No evidence of trauma, multiple needle track dias from IV drug abuse 10. Psycho/Social: Pt with polysubstance abuse, prior admissions to mental health facility with cocaine abuse. Patient`s father was updated, no other family involved currently in her care. 11. Supportive and preventive care as ordered Boyd cather insertion to prevent risk of skin breakdown given bed ridden status Rt IJ for vascular access, infusion of meds, site looks clear, date of insertion 12/18/17 by ED provider Critical Care Time: 40 min
[2017-12-19] MEDS ORDERED: Norepinephrine 16MCG/ML IVPRE* 4,000 MCG/250 ML BAG IV ONE (11:46)
[2017-12-19] MEDS: Norepinephrine 16MCG/ML IVPRE* 4,000 MCG/250 ML BAG IV SCH (12:59)
--- NOTE | 2017-12-19 14:08 | CONS ---
NEUROLOGY CONSULTATION: DATE OF CONSULT: 12/19/17 REFERRING PROVIDER: Dr. Castillo. LOCATION: She is an inpatient in ICU bed 5. CHIEF COMPLAINT: Overdose, coma, possible brain . HISTORY OF PRESENT ILLNESS: Johana Miller is a 37-year-old woman who according to the medical records was found down in a hotel room bathroom by hotel staff and apparently was somewhat responsive initially but then became unresponsive. EMS arrived and she was unresponsive. She was not breathing and was asystolic and CPR was initiated. they got a pulse and was intubated in the field. A CO2 reading in the field after intubation was 120. She was given Narcan and bicarb. In the emergency room she was unresponsive. She was already intubated. Urine tox screen was positive for cocaine and opiates. She is a known heroin user. Her initial blood gas at 2155 on 12/18/17 was pH 7.13, pCO2 of 56, PO2 of 280. Again, that was after intubation in the field. Her temperature was 97.8 when she came in and got down to 95 at one point. Her blood pressures have remained between the low 70s to 110 systolic over about 50 to [address] done 12/18/17 at 2230 hours was ominous with diffuse loss of delgado white matter markings, diffuse loss of sulci, loss of the perimesencephalic cistern, and very small ventricles, all consistent with early cerebral edema. She has been in the intensive care unit since transfer up and maintained on mechanical ventilation. She has not had any sedating medications since she has been here, as best as I can see from reviewing the records and per her nursing report. I spoke with Dr. Castillo earlier today and reported that the patient had unreactive pupils and did not respond to gag and I was asked to see her in consultation. PAST MEDICAL HISTORY: Notable for multiple psychiatric admissions including some suicidal gestures. She has a history of cocaine and heroin addiction going back a decade or more. Reviewing prior records, she carried a diagnosis of borderline personality disorder, posttraumatic stress disorder, as well as her mood disorder. She has had several detoxification admissions and had been on Suboxone in the past. In terms of medications at home, as far as I know, she had not been on anything by prescription. In the past she had been on Depakote presumably for her mood disorder. ALLERGIES: She does not have any drug allergies. SOCIAL HISTORY: Gleaned from prior hospitalization records, mainly mental health admissions. She lost custody of her children and the father of the children apparently committed suicide. She has had alcohol binge drinking in the past. PHYSICAL EXAMINATION: She is a well-hydrated and well-nourished 37-year-old woman intubated in the intensive care unit bed. Most recent temperature 96.4 by Boyd probe, heart rate is in the 80s and in sinus on the monitor, respiratory rate is set at 20 on the ventilator, and oxygen saturation is 99% on supplemental oxygen. Blood pressures ranging from about 84 to 104 systolic over 59 to 83 diastolic within the last several hours. Heart sounds in a regular rhythm without murmurs. Neck is supple. She has multiple lines in. Neurologically, pupils are fixed and nonreactive at about 7 mm. Funduscopic exam reveals fairly sharp disks but no cups. I do not see any hemorrhages or marivel papilledema. There are no corneal reflexes. There is no eye movements to oculocephalic testing. I did not perform ocular vestibular reflex testing yet. There is no facial movement. All limbs are flaccid. There is no spontaneous movement of the limbs. There is no facial grimacing to supracondylar pressure or to strong nail bed pressure on all four limbs. There is no movement of the extremities to noxious stimuli to all four limbs. She is areflexic. DIAGNOSTIC STUDIES/LAB DATA: Includes most recent chemistry profile; sodium is 146 which is up from 139 last night, chloride is up to 117, creatinine is 1.02. Glucose this morning is 103, it was 333 last night. Her lactic acid went from a 11.4 on admission to 1.4 early this morning. Her liver enzymes spiked from AST of 256 when she presented to 454 early this morning. Troponin was 0.42. TSH normal at 3.56. Urine tox screen was positive for opiates and cocaine. Serum alcohol level was less than 10. CBC notable for a white blood cell count of 15.4 when she came in, coming down to 10.6 this morning. Hemoglobin stable at 10.5 and platelet count 322,000. Beta HCG was negative. Her INR was a little bit elevated to 1.04 when she came in, up to 1.15 early this morning. 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 I did not continue on with a full brain examination because of the proximity to taking opiates. Clearly, the early CT scan findings are very ominous and suggest that she was hypoxic for longer than the time since she was found by the hotel staff. The half life of heroin is very quick and conversion to morphine leaves a little bit longer duration of opiate action. From my reading the half life of the morphine is about 3 hours and so 5 half lives will be about 15 to 18 hours. She was found at about 9 p.m. I believe and so I think we should wait till tomorrow morning before doing a full assessment for possible brain . I have discussed my impression with Dr. Castillo as well as the donor staff that are here from [place] and the nursing staff. I recommend they keep her systolic pressure if possible over 90 and keep her as close to euthermia as possible. We discussed that she is at risk for diabetes insipidus as well. Her liver function is being monitored. I will continue to follow her along with you. [id number]/[facility] #: [id number] MANEUL
[2017-12-19] MEDS ORDERED: NS 0.45% 1000 ML BAG* 1,000 ML IV SCH (16:00)
[2017-12-19] MEDS: Desmopressin Acetate* 4 MCG/ML 1 ML SDV IV SCH (16:07)
[2017-12-19 18:29] LABS: EGFR Non-African American 56.5 (>60)
[2017-12-19] MEDS: D5W 1/2 NS 1000 ML BAG* 1,000 ML IV SCH (21:17)
[2017-12-19 23:11] LABS: EGFR Non-African American 58.3 (>60)
[2017-12-20] MEDS: Pantoprazole IV* 40 MG IV SCH ×4 (00:11→20:56)
[2017-12-20] MEDS: CHLORHEXADINE (PERIDEX) VENT ORAL CARE TOPICAL SCH ×6 (00:12→20:56)
[2017-12-20] MEDS ORDERED: Chlorhexidine MOUTHWASH 0.12%* 15 ML UDC SWISH SPIT SCH (02:00)
[2017-12-20] MEDS: D5W 1/2 NS 1000 ML BAG* 1,000 ML IV SCH ×4 (03:11→22:34)
[2017-12-20] MEDS: Desmopressin Acetate* 4 MCG/ML 1 ML SDV IV SCH ×2 (04:36→18:36)
[2017-12-20] MEDS: Heparin VIAL(*) 5000 UNITS/ML VIAL (FIVE THOUSAND) SUBCUT SCH ×3 (05:50→20:56)
[2017-12-20 06:22] LABS: EGFR Non-African American 61.7 (>60)
[2017-12-20] MEDS: Norepinephrine 16MCG/ML IVPRE* 4,000 MCG/250 ML BAG IV SCH ×2 (07:42→19:37)
[2017-12-20] MEDS: KCL 20 MEQ/100 ML IVPREMIX* 20 MEQ/100 ML BAG IV SCH ×2 (08:10→10:22)
--- NOTE | 2017-12-20 08:19 | RAD ---
INDICATION: Overdose COMPARISON: None TECHNIQUE: Noncontrast axial source images were acquired from the skull base to the vertex. FINDINGS: Ventricles/sulci: The ventricles appear slitlike consistent with intracranial mass effect. The sulci are effaced. The basilar cisterns are effaced. Brain parenchyma: No focal parenchymal abnormalities but there is loss of the delgado-white junction. Intracranial hemorrhage:No definitive intracranial hemorrhage. Extra-axial spaces: There are no abnormal extra axial fluid collections or evidence of extra-axial mass. Calvarium: There is no calvarial fracture or other calvarial abnormality. Scalp: There is no evidence of scalp or extracalvarial soft tissue abnormality. Paranasal sinuses/mastoid: Ethmoid and maxillary antral sinusitis with air-fluid level in left maxillary antrum. Other: None. IMPRESSION: Intracranial mass effect with slitlike ventricles, effacement of sulci, and effaced basilar cisterns suggest significant intracranial mass effect. Loss of delgado-white junction. Consider diffuse hypoxic injury. Findings communicated to emergency department by imaging production troubleshooter following the examination.
--- NOTE | 2017-12-20 10:25 | HP ---
ADMISSION HISTORY AND PHYSICAL: DATE OF ADMISSION: 12/18/17 PRIMARY CARE PROVIDER: Unknown. HEALTHCARE PROXY: Unknown. CODE STATUS: Presumed full. CHIEF COMPLAINT: Found down. SOURCE OF INFORMATION: History obtained from interview with first responders from [employer] and emergency room physician. RELIABILITY: Fair. HISTORY OF PRESENT ILLNESS: This is an unknown aged female somewhere likely in her early 20s, who was reported walking to [facility], asked to use the bathroom. After approximately 15 minutes, she had not been seen until the front end developer went to check on her, found her slumped against the wall. EMS was activated. First responders found her with her head angled down, which potentially was decreasing oxygen flow. They pulled her out of the bathroom, administered Narcan twice, once in each nostril without effect. [employer] started CPR. EMS arrived, found the patient asystolic, administered epinephrine, intubated the patient with return of spontaneous circulation, transferred the patient to [facility]. No other medication administration was reported. The patient's endotracheal tube placement was confirmed and an NG tube was placed with 600 cc of brown fluid rapidly obtained. At the time that she was found in the bathroom, she was noted with a syringe with her. It was unclear that if it was emptied or in her arm but was suspected to be heroin per [employer]. The patient is unidentified at this time; however, [employer] used her telephone to identify her telephone number and is attempting to use their resources to assist in her identification. Cooling was started in the emergency room and the hospitalist service was consulted for admission. PAST MEDICAL HISTORY: Unable to obtain. MEDICATIONS: Unable to obtain. ALLERGIES: Unable to obtain. FAMILY HISTORY: Unable to obtain. SOCIAL HISTORY: Unable to obtain. REVIEW OF SYSTEMS: Unable to obtain. PHYSICAL EXAMINATION GENERAL: Intubated young woman. ET tube and NG tube and OG tube are in place. VITAL SIGNS: In the emergency room, heart rate is 140 beats per minute, blood pressure 126/67. She is being ventilated on pressure controlled ventilation with good tidal volumes. T-max in the emergency room is 98.8 prior to initiation of cooling. NECK: She has no cervical lymphadenopathy. LUNGS: Her lungs have rales in both bases, unable to asses both bases anteriorly, nothing clear anteriorly. HEART: She is tachycardic. She has no murmurs. ABDOMEN: Soft, nontender, nondistended. EXTREMITIES: Warm and well perfused. No edema or cyanosis. She has received no sedation and she is unresponsive. Does not localize to pain or withdraw to pain. NEUROLOGIC: Her pupils are 7 mm and unresponsive. She has negative Doll's eyes with absent brain stem reflexes. DIAGNOSTIC STUDIES/LAB DATA: Labs reviewed. Arterial blood gas on presentation; pH 7.13, CO2 of 56, O2 of 280. White blood cell count 15.4, hemoglobin 10, platelets 489,000. Bicarb 19, creatinine 1.23, AST 256, ALT 119 , alk phos 183. Lactic acid is pending at the time of this report. Beta-HCG negative. Data reviewed. Chest x-ray: ET tube with good placement. No cardiopulmonary disease. ASSESSMENT AND PLAN: This is an unknown aged female presenting after found down in the bathroom, suspected opioid abuse with either primary respiratory or cardiac arrest, had return of spontaneous circulation after administration of Narcan, epinephrine, and intubation, now currently unresponsive, being transferred to the ICU for cooling. Cardiac arrest with return of spontaneous circulation appears in the setting of opioid abuse most likely primary respiratory arrest. Intubated with good ventilation. Starting targeted temperature at ventilation, received additional 2 L of IV cold fluid bolus with continued normal saline at 150 cc for 2 additional liters. Holding on sedation to assess return of brain function. Midazolam p.r.n. for shivering. Can consider addition of propofol and fentanyl if needed. Remote Broadcast Technician consult overnight. Acute kidney injury likely in the setting of above fluids, repeat in the morning. LFTs likely in the setting of above, potentially early shock liver, trend in the morning. Substance abuse, we will follow. DVT prophylaxis, heparin subcu. ADDENDUM TO HISTORY AND PHYSICAL: The patient has been identified as Johana Miller, a 37-year-old female, last hospitalized at [facility] in 2013 in the mental health unit under the care of Dr. Crawford. At that time, records reveal she struggled with polysubstance abuse with overdoses and parasuicidal features and impulsivity. She has not been hospitalized since that time. Other additional medical history included concussion in 2012 and some consideration that she had a lupus. It is clearly delineated that her drug of choice had been heroin in that she had been addicted to substances for the previous 9 years in 2013, which would be 13 years at this time. Physical exam remains unchanged. The patient has dilated pupils. No corneal reflex. No doll's eye. No gag reflex. CAT scan has returned and indicating loss of delgado-white junction effacement, cerebral edema with radiographic evidence of brain . ASSESSMENT AND PLAN: This is a 37-year-old female presenting after found down unknown duration of time for return of spontaneous circulation now without brainstem reflexes and a CAT scan concerning for brain . Care discussed with Dr. Rodriguez from intensive care unit. We will cool the patient but only to 36 degrees maintain euthermia until the morning. We will attempt to contact family now that the patient's identification has been made. Lactic acidosis has returned. She will be receiving fluid. I will recheck again at 2 a.m. with a repeat ABG as well. No other changes to the plan of care. [id number]/[facility] #: [id number]/[facility] #: [id number] MANUEL
[2017-12-20 10:35] LABS: ABS Basophils 0 10^3/ul (0-0.2); ABS Eosinophils 0.3 10^3/ul (0-0.6); ABS Lymphocytes 1.3 10^3/ul (1.0-4.8); ABS Monocytes 0.4 10^3/ul (0-0.8); ABS Neutrophils 3.3 10^3/ul (1.5-7.7); ABS Nucleated RBC 0 10^3/ul; Eosinophil % 5.6 % (0-6); Hematocrit 31 % (35-47); Lymphocyte % 24.6 % (25-47); Mean Corpuscular HGB Conc 32 g/dl (31-36); Mean Corpuscular Hemoglobin 26 pg (27-31); Mean Corpuscular Volume 81 fL (80-97); Mean Platelet Volume 7.8 um3 (7.4-10.4); Nucleated Red Blood Cells % 0.1; Platelet Count 326 10^3/ul (150-450); Red Blood Count 3.81 10^6/ul (4.00-5.40); Red Cell Distribution Width 17 % (10.5-15); White Blood Count 5.3 10^3/ul (3.5-10.8)
[2017-12-20 11:13] LABS: EGFR Non-African American 65.4 (>60)
--- NOTE | 2017-12-20 11:31 | PN ---
NEUROLOGY FOLLOWUP NOTE: DATE OF FOLLOWUP: 12/20/17 ROBOTICS SPECIALIST: Dr. Castillo LOCATION: She is ICU bed 5. CHIEF COMPLAINT: Coma, overdose. INTERVAL HISTORY: Since yesterday, there have been no new clinical events. She remains unresponsive on no sedation. Her blood pressure has been stable and so has her oxygenation. She did develop increased sodium consistent with diabetes insipidus and was started on desmopressin. Medications are reviewed and she is now on desmopressin 1 mcg IV q. 12 hours, heparin 5000 units subcu q. 8 hours, midazolam 2 mg IV q. 2 hours p.r.n. shivering, but she has not received any, Levophed, Protonix 40 mg IV q. 24 hours. On exam, temperature is 96.8 by Boyd probe at 7 o'clock this morning, currently as I was examining her it is about 37C. Blood pressure is running about 120 to 130 systolic over 70 to 80 diastolics. Heart rate is in the 90s on the monitor in sinus. Respiratory rate is currently set at 20, oxygen saturation is 95% on 60% FiO2. Heart tones are regular and there are no murmurs. There is conjunctival edema. Neurological Exam: Pupils are fixed and nonreactive at 7 mm. Funduscopic exam reveals papilledema without hemorrhages in the left fundus and to a lesser degree, the right optic nerve. Eye movements are mid positioned and there are no spontaneous eye movements. There are no corneal reflexes or response to nasal tickle. There is no response to oculocephalic testing. Muscle tone is flaccid in all limbs. There is no response to deep nail bed pressure in all limbs. She has occasional spontaneous rotational neck movements mainly to the right. There are no other spontaneous movements and no response to pain in any of the limbs. Laboratory data was reviewed. So far chemistries from today are notable for sodium at 5:45 this morning about 150, chloride 121, carbon dioxide 23, BUN 21, creatinine 1.01, glucose 121, calcium 7.5. Calcium yesterday was 7.4 when the albumin was 3.0. Liver enzymes have not been repeated yet. Chest x-ray from yesterday interpreted as worsening aeration with progressive interstitial change and developing alveolar opacities. Impression is that of possible brain . The only confounding factor is sodium, which is only modestly elevated at this point. Repeat sodium is pending for 10 this morning. I will plan to do a brain determination after the next sodium comes back, if it is less than 150. I will proceed with a full clinical examination including apnea testing and caloric testing. I have spoken with the donor team from [place]. The family liaison, I have spoken with the father who has a healthcare proxy status. He was not able to come in yesterday, but said he may come in today at noon. He is aware of the potential for donation and the plan for brain determination. I will post another note once that evaluation is complete a little later this morning. [id number]/[facility] #: [id number] MTDD
--- NOTE | 2017-12-20 13:35 | CONS ---
NEUROLOGY FOLLOWUP NOTE: DATE OF FOLLOWUP: 12/20/17 BALLOON PILOT: Dr. Castillo. CHIEF COMPLAINT: Assess for brain . INTERVAL HISTORY: Since early this morning, Kierstens sodium came back in an acceptable range and all the prerequisites for determining about brain have been met. She came into the emergency room on 12/18/17 at about 2100 hours with positive opiates and cocaine in her bloodstream. The half-life of cocaine is short enough that it should be long out of her system at this point over 24 hours later and half-life for heroin and morphine and morphine-related products should also be no longer a factor in her neurological exam. Her temperature at the time of testing is 36 degrees centigrade or higher, systolic blood pressures have been maintained over 100 with some Levophed. Her neuroimaging in terms of her CAT scan upon presentation reveals severe cerebral edema explaining her coma and the cause being cardiopulmonary arrest in the setting of an overdose is an etiological reason. Her chemistries right before testing revealed a sodium of 148, which was down from 150 earlier this morning; chloride 120; carbon dioxide 24. BUN is 22 and creatinine 0.96. Glucose was 112 prior to testing as well. She has not received any sedating medications here in the intensive care unit. MEDICATIONS: Reviewed again and she is on: 1. Desmopressin 1 mcg IV q.12 hours. 2. Heparin 5000 units subcutaneous q.8 hours. 3. Midazolam 2 mg IV q.2 hours p.r.n. shivering for which she has received none. 4. Levophed. 5. Pantoprazole 40 mg IV q.24 hours. PHYSICAL EXAM: Temperature at the time of clinical assessment was between 35.5 and 36 degrees, by Boyd probe, centigrade. Her blood pressure was consistently over 100 systolic. On neurological examination, pupils were about 6 to 7 mm and unreactive to bright light. Eyes were mid position and fixed. There were no corneal reflexes. Oculocephalic reflex testing was negative for eye movements. There is no facial movement to noxious stimuli at the supraorbital regions bilaterally or to deep nail bed pressure in all 4 limbs. There was no movement of the limbs to deep nail bed pressure either. Gag reflex was absent to tongue blade, cough reflex was absent to tracheal suctioning. She had occasional roving neck movements. She had occasional flexion and extension of the fingers of the right hand. There were no other spontaneous movements or stimulated movements noted. Ice water calorics were carried using 50 cc of ice cold water in both external auditory canals. The head was in 30-degree position. The external auditory canals were checked for occlusion and there was none present. There were no eye movements when testing either ear with several minutes in between testing. Apnea testing was carried out. She was preoxygenated with 100% FiO2 for 20 minutes. PEEP was set at 5 cm of water. The ventilator was adjusted down to 10 breaths per minute, but only for a few minutes as her end-tidal CO2 was already over 40. Prior to apnea testing, arterial blood gas was obtained with a pH of 7.21, PCO2 65, PO2 152. The ventilator was disconnected and oxygen was provided via a pediatric catheter at the level of the jacklyn at 6 L per minute. The patient was observed for respirations. Within about a minute, the patient exhibited respiration. Continued to watch and perhaps another 2 minutes past before the patient exhibited a second respiration. There were no other additional movements noted. The patient was reconnected to the ventilator. Post assessment, blood gas was not checked because of the patient's ventilations present during the apnea testing. IMPRESSION AND PLAN: Impression is that of persistent presence of respiratory drive in spite of the absence of all other brainstem reflexes. The patient therefore does not fit criteria for brain . Father is reportedly coming in this afternoon. I will discuss her current status with him at that time. At this point, it is clear she has suffered a severe brain injury with [id number] likelihood of recovery. However, she does not fit clinical criteria for brain at this point in time. I will post another note after I see the father and discuss the situation with him. [id number]/[facility] #: [id number] [facility] HOSPITALEdison
[2017-12-20] MEDS ORDERED: Albuterol/Ipratropium NEB.SOL* Albuterol 2.5 MG/Ipratropium 0.5 MG 3 ML INH PRN (15:07)
[2017-12-20] MEDS ORDERED: Albuterol/Ipratropium NEB.SOL* Albuterol 2.5 MG/Ipratropium 0.5 MG 3 ML ONE (15:12)
[2017-12-20] MEDS ORDERED: Vancomycin(*) 1,000 MG in NS 0.9% 250 ML* 250 ML IVPB ONE (15:32)
--- NOTE | 2017-12-20 15:37 | RAD ---
INDICATION: Change in status COMPARISON: Similar chest x-ray December 19, 2017 TECHNIQUE: Single AP portable view of the chest was obtained. FINDINGS: Image quality is compromised due to the relative inferiority of a portable chest x-ray. There is a right neck central line with the tip terminating at the superior vena cava, an endotracheal tube below the level the clavicular heads and a gastric tube terminating beyond the [id number] of the image below the diaphragm. There is a mild degree of cardiomegaly. There is increased patchy density obscuring the lower lungs bilaterally. There is density obscuring the right hemidiaphragm and causing left costophrenic angle blunting. Visualized bones are normal for the patient's age. IMPRESSION: 1. Properly positioned lines and tubes. 2. Worsening density obscuring the right worse than left lung bases consistent with worsening pulmonary edema and/or pleural effusions in this clinical setting.
[2017-12-20] MEDS ORDERED: Furosemide IV* 10 MG/ML VIAL (40 MG) IV ONE (16:00)
--- NOTE | 2017-12-20 16:02 | PN ---
Date of Service: 12/20/17 - [facility] progress note Critical Care Services: Pt seen and examined at bedside. 24 hr events Hypotension requiring Levophed Peak pressures elevated with drop in tidal volumes, improved with vent adjustments FiO2 requirements have increased, currently on 80% Hypernatremia improved while on Desmopressin and hypotonic fluids Neuro exam didnot show any brain stem activity except for spontaneous breathing effort Urine output has been trending down Vital Signs: Temp Pulse Resp BP SpO2 FiO2 96.8 F 98 20 96/59 93 80 12/20/17 07:00 12/20/17 15:36 12/20/17 15:36 12/20/17 15:35 12/20/17 15:36 12/20 15:36 Physical Exam: Gen: Pt doesnot respond to any stimuli, has movements of head to sides HEENT:ETT in place Lungs:Rhonchi + b/l, decreased BS at bases Cardiac: S1, S2+, tachycardic Abdomen: Soft, BS+ Extremities: No edema Neuro: No pupillary response , dilated pupils, no response to caloric stimulation Skin: Needle track dias Fluid Balance (Past 24 Hours): I= 1725 O= 330 Net 1395 Intake & Output 12/18/17 12/19/17 12/20/17 12/21/17 06:59 06:59 06:59 06:59 Intake Total 2962 4342.2 1725 Output Total 1734 3162 330 Balance 1228 1180.2 1395 Weight 132 lb 11.492 oz 143 lb 4.807 oz Intake: IV Fluids 2962 4142 1430 D5 1/2 NS 1445 1430 NS (0.45%) 1002 NS (0.9%) 2962 1695 Medicated IV 200.2 295 CC - Norepinephrine/ 200.2 95 Levophed KCl 200 Oral 0 0 Output: NG Tube Drainage Amount 500 500 G Tube 150 Urine 179 Boyd 1055 2512 330 Other: # Bowel Movements 0 Labs: Laboratory Results - last 24 hr 12/19/17 12/19/17 12/19/17 14:04 15:29 18:00 WBC RBC Hgb Hct MCV MCH MCHC RDW Plt Count MPV Neut % (Auto) Lymph % (Auto) Stanton % (Auto) Eos % (Auto) Baso % (Auto) Absolute Neuts (auto) Absolute Lymphs (auto) Absolute Monos (auto) Absolute Eos (auto) Absolute Basos (auto) Absolute Nucleated RBC Nucleated RBC % ABG pH ABG pCO2 ABG pO2 ABG HCO3 ABG O2 Saturation ABG Base Excess Sodium 153 H Potassium 3.7 Chloride 123 H Carbon Dioxide 22 Anion Gap 8 BUN 20 Creatinine 1.09 H Est GFR ( Amer) 68.3 Est GFR (Non-Af Amer) 56.5 BUN/Creatinine Ratio 18.3 Glucose 118 H Serum Osmolality 319 H Calcium 7.3 L Total Bilirubin Direct Bilirubin Indirect Bilirubin AST ALT Alkaline Phosphatase Total Protein Albumin Globulin Albumin/Globulin Ratio Urine Osmolality 102 L Ur Random Sodium 12/19/17 12/19/17 12/19/17 18:00 18:00 18:00 WBC RBC Hgb Hct MCV MCH MCHC RDW Plt Count MPV Neut % (Auto) Lymph % (Auto) Stanton % (Auto) Eos % (Auto) Baso % (Auto) Absolute Neuts (auto) Absolute Lymphs (auto) Absolute Monos (auto) Absolute Eos (auto) Absolute Basos (auto) Absolute Nucleated RBC Nucleated RBC % ABG pH ABG pCO2 ABG pO2 ABG HCO3 ABG O2 Saturation ABG Base Excess Sodium Potassium Chloride Carbon Dioxide Anion Gap BUN Creatinine Est GFR ( Amer) Est GFR (Non-Af Amer) BUN/Creatinine Ratio Glucose Serum Osmolality 315 H Calcium Total Bilirubin Direct Bilirubin Indirect Bilirubin AST ALT Alkaline Phosphatase Total Protein Albumin Globulin Albumin/Globulin Ratio Urine Osmolality 134 L Ur Random Sodium 18 12/19/17 12/19/17 12/19/17 22:15 22:15 22:15 WBC RBC Hgb Hct MCV MCH MCHC RDW Plt Count MPV Neut % (Auto) Lymph % (Auto) Stanton % (Auto) Eos % (Auto) Baso % (Auto) Absolute Neuts (auto) Absolute Lymphs (auto) Absolute Monos (auto) Absolute Eos (auto) Absolute Basos (auto) Absolute Nucleated RBC Nucleated RBC % ABG pH ABG pCO2 ABG pO2 ABG HCO3 ABG O2 Saturation ABG Base Excess Sodium 152 H Potassium 3.4 L Chloride 122 H Carbon Dioxide 24 Anion Gap 6 BUN 22 Creatinine 1.06 H Est GFR ( Amer) 70.6 Est GFR (Non-Af Amer) 58.3 BUN/Creatinine Ratio 20.8 H Glucose 133 H Serum Osmolality 314 H Calcium 7.4 L Total Bilirubin Direct Bilirubin Indirect Bilirubin AST ALT Alkaline Phosphatase Total Protein Albumin Globulin Albumin/Globulin Ratio Urine Osmolality 682 Ur Random Sodium 12/19/17 12/20/17 12/20/17 22:15 02:10 02:10 WBC RBC Hgb Hct MCV MCH MCHC RDW Plt Count MPV Neut % (Auto) Lymph % (Auto) Stanton % (Auto) Eos % (Auto) Baso % (Auto) Absolute Neuts (auto) Absolute Lymphs (auto) Absolute Monos (auto) Absolute Eos (auto) Absolute Basos (auto) Absolute Nucleated RBC Nucleated RBC % ABG pH ABG pCO2 ABG pO2 ABG HCO3 ABG O2 Saturation ABG Base Excess Sodium 151 H Potassium 3.3 L Chloride 121 H Carbon Dioxide 22 Anion Gap 8 BUN 21 Creatinine 1.02 H Est GFR ( Amer) 73.8 Est GFR (Non-Af Amer) 61.0 BUN/Creatinine Ratio 20.6 H Glucose 130 H Serum Osmolality 311 H Calcium 7.3 L Total Bilirubin Direct Bilirubin Indirect Bilirubin AST ALT Alkaline Phosphatase Total Protein Albumin Globulin Albumin/Globulin Ratio Urine Osmolality Ur Random Sodium 82 12/20/17 12/20/17 12/20/17 02:10 02:10 05:45 WBC RBC Hgb Hct MCV MCH MCHC RDW Plt Count MPV Neut % (Auto) Lymph % (Auto) Stanton % (Auto) Eos % (Auto) Baso % (Auto) Absolute Neuts (auto) Absolute Lymphs (auto) Absolute Monos (auto) Absolute Eos (auto) Absolute Basos (auto) Absolute Nucleated RBC Nucleated RBC % ABG pH ABG pCO2 ABG pO2 ABG HCO3 ABG O2 Saturation ABG Base Excess Sodium 150 H Potassium 3.3 L Chloride 121 H Carbon Dioxide 23 Anion Gap 6 BUN 21 Creatinine 1.01 H Est GFR ( Amer) 74.6 Est GFR (Non-Af Amer) 61.7 BUN/Creatinine Ratio 20.8 H Glucose 121 H Serum Osmolality Calcium 7.5 L Total Bilirubin Direct Bilirubin Indirect Bilirubin AST ALT Alkaline Phosphatase Total Protein Albumin Globulin Albumin/Globulin Ratio Urine Osmolality 699 Ur Random Sodium 75 12/20/17 12/20/17 12/20/17 05:45 05:45 05:45 WBC RBC Hgb Hct MCV MCH MCHC RDW Plt Count MPV Neut % (Auto) Lymph % (Auto) Stanton % (Auto) Eos % (Auto) Baso % (Auto) Absolute Neuts (auto) Absolute Lymphs (auto) Absolute Monos (auto) Absolute Eos (auto) Absolute Basos (auto) Absolute Nucleated RBC Nucleated RBC % ABG pH ABG pCO2 ABG pO2 ABG HCO3 ABG O2 Saturation ABG Base Excess Sodium Potassium Chloride Carbon Dioxide Anion Gap BUN Creatinine Est GFR ( Amer) Est GFR (Non-Af Amer) BUN/Creatinine Ratio Glucose Serum Osmolality 312 H Calcium Total Bilirubin Direct Bilirubin Indirect Bilirubin AST ALT Alkaline Phosphatase Total Protein Albumin Globulin Albumin/Globulin Ratio Urine Osmolality 637 Ur Random Sodium 80 12/20/17 12/20/17 12/20/17 10:07 10:27 10:27 WBC 5.3 RBC 3.81 L Hgb 10.0 L Hct 31 L MCV 81 MCH 26 L MCHC 32 RDW 17 H Plt Count 326 MPV 7.8 Neut % (Auto) 62.0 Lymph % (Auto) 24.6 L Stanton % (Auto) 7.2 H Eos % (Auto) 5.6 Baso % (Auto) 0.6 Absolute Neuts (auto) 3.3 Absolute Lymphs (auto) 1.3 Absolute Monos (auto) 0.4 Absolute Eos (auto) 0.3 Absolute Basos (auto) 0 Absolute Nucleated RBC 0 Nucleated RBC % 0.1 ABG pH ABG pCO2 ABG pO2 ABG HCO3 ABG O2 Saturation ABG Base Excess Sodium 148 H Potassium 3.9 Chloride 120 H Carbon Dioxide 24 Anion Gap 4 BUN 22 Creatinine 0.96 H Est GFR ( Amer) 79.1 Est GFR (Non-Af Amer) 65.4 BUN/Creatinine Ratio 22.9 H Glucose 112 H Serum Osmolality Calcium 7.4 L Total Bilirubin 0.30 Direct Bilirubin 0.10 Indirect Bilirubin 0.2 L AST 302 H ALT 173 H Alkaline Phosphatase 119 H Total Protein 5.0 L Albumin 2.7 L Globulin 2.3 Albumin/Globulin Ratio 1.2 Urine Osmolality Ur Random Sodium 109 12/20/17 11:30 WBC RBC Hgb Hct MCV MCH MCHC RDW Plt Count MPV Neut % (Auto) Lymph % (Auto) Stanton % (Auto) Eos % (Auto) Baso % (Auto) Absolute Neuts (auto) Absolute Lymphs (auto) Absolute Monos (auto) Absolute Eos (auto) Absolute Basos (auto) Absolute Nucleated RBC Nucleated RBC % ABG pH 7.21 L ABG pCO2 65 H ABG pO2 152 H ABG HCO3 22.9 ABG O2 Saturation 98.7 H ABG Base Excess -2.6 L Sodium Potassium Chloride Carbon Dioxide Anion Gap BUN Creatinine Est GFR ( Amer) Est GFR (Non-Af Amer) BUN/Creatinine Ratio Glucose Serum Osmolality Calcium Total Bilirubin Direct Bilirubin Indirect Bilirubin AST ALT Alkaline Phosphatase Total Protein Albumin Globulin Albumin/Globulin Ratio Urine Osmolality Ur Random Sodium Studies: CXR: Densities at bases b/l, increased from yesterday Nutrition: NPO Impression: Impression: 37 y o f with polysubstance abuse, possible lupus admitted after found to be unresponsive in hotel floor after possibly injecting cocaine, drug screen also positive for opiates. Pt was found to be apneic and pulseless when EMS arrived, CPR performed for 5 min with return of spontaneous circulation was intubated and transferred to ED. Patient with no evidence of brain stem function, remains intubated on full support 1. Cardiac arrest after Cocaine overdose 2. Possible suicide attempt, h/o psychiatric illness and prior hospitalization to mental health unit 3. Possible brain after hypoxemic insult, awaiting confirmation 4. Hypercapnic resp failure s/p cardiac arrest, eucapnic on ventilator 5. Hypotension, ? septic shock versus sec to high PEEP 6. Shock liver 7. Possible PNA Plan: Plan: 1. Neuro: Patient is intubated. No brain stem reflexes noted. Had few breaths on vent during apnea testing. Neuro follow-up noted. Urine screen positive for Opiates and Cocaine. Not receiving any sedation. Pupils dilated and unresponsive. CT brain showed diffuse cerebral edema suggestive of hypoxic insult. 2. Resp: On full vent support. Peak pressures elevated and FiO2 requirement increased, CXR obtained and reviewed- Air space opacities at bases and more centrally, likely vascular congestion. Has thick secretions with concern for aspiration event when she was unresponsive, started broad spectrum abx. Will perform quick bedside bronch. Will change ETT to 7.5 from 6 currently. Ordered nebs, Lasix for possible pulm edema. Pulm toilet. 3.CVS: Has been needing vasopressor support, receiving fluids, rate decreased. 4. Renal: Hypernatremia sec to DI, responding to Desmopressin and hypotonic fluids, BMP q 4hrs. Urine out has been trending down. Will give Lasix 5. GI: Will c/w NPO status pending further assessment of neurological status. GI ppx. Elevated LFTs likely sec to shock liver, trending. Hypoalbuminemia, likely nutritional 6. Endocrine: No h/o DM, will monitor BS closely 7. Haem: Normocytic anemia, no leucocytosis 8. ID: Started on broad spectrum abx for presumed PNA 9. Musculoskeltal: No evidence of trauma, multiple needle track dias from IV drug abuse 10. Psycho/Social: Pt with polysubstance abuse, prior admissions to mental health facility with cocaine abuse. Patient`s father was updated over phone 11. Supportive and preventive care as ordered Boyd cather insertion to prevent risk of skin breakdown given bed ridden status Rt IJ for vascular access, infusion of meds, site looks clear, date of insertion 12/18/17 by ED provider Critical Care Time: 40 min
[2017-12-20] MEDS: Cefepime 1 GM in Dextrose(*) 1 GM/50 ML BAG IV SCH (18:29)
[2017-12-21] MEDS: CHLORHEXADINE (PERIDEX) VENT ORAL CARE TOPICAL SCH ×5 (00:39→16:23)
[2017-12-21] MEDS ORDERED: Norepinephrine 8 mg in 500 mL NS (Pharmacy Admixed Drip) IV SCH (01:00)
[2017-12-21] MEDS: Cefepime 1 GM in Dextrose(*) 1 GM/50 ML BAG IV SCH ×2 (03:56→16:23)
[2017-12-21] MEDS: Desmopressin Acetate* 4 MCG/ML 1 ML SDV IV SCH ×2 (03:56→16:23)
[2017-12-21] MEDS: D5W 1/2 NS 1000 ML BAG* 1,000 ML IV SCH ×2 (04:53→11:39)
[2017-12-21] MEDS: Heparin VIAL(*) 5000 UNITS/ML VIAL (FIVE THOUSAND) SUBCUT SCH ×2 (06:00→14:12)
[2017-12-21 06:27] LABS: ABS Basophils 0.1 10^3/ul (0-0.2); ABS Eosinophils 0.4 10^3/ul (0-0.6); ABS Lymphocytes 1.5 10^3/ul (1.0-4.8); ABS Monocytes 0.6 10^3/ul (0-0.8); ABS Neutrophils 4.8 10^3/ul (1.5-7.7); ABS Nucleated RBC 0 10^3/ul; Eosinophil % 5.5 % (0-6); Hematocrit 30 % (35-47); Hemoglobin 10.1 g/dl (12.0-16.0); Lymphocyte % 20.1 % (25-47); Mean Corpuscular HGB Conc 33 g/dl (31-36); Mean Corpuscular Hemoglobin 27 pg (27-31); Mean Corpuscular Volume 81 fL (80-97); Mean Platelet Volume 7.7 um3 (7.4-10.4); Nucleated Red Blood Cells % 0; Platelet Count 312 10^3/ul (150-450); Red Blood Count 3.77 10^6/ul (4.00-5.40); Red Cell Distribution Width 17 % (10.5-15); White Blood Count 7.3 10^3/ul (3.5-10.8)
--- NOTE | 2017-12-21 07:10 | RAD ---
INDICATION: Orogastric tube placement. COMPARISON: Comparison is made with the prior study of the same date from approximately 7 hours earlier. TECHNIQUE: A portable view of the chest was obtained. FINDINGS: There is an endotracheal tube which projects over the midline. The catheter tip projects just below the level of the clavicular heads. There is a central venous catheter entering from the right jugular approach. The catheter tip projects over the superior vena cava. There is an orogastric tube which demonstrates normal course. The catheter tip projects over the mid abdomen. The heart is within normal limits in size. There are bibasilar infiltrates and small bilateral pleural effusions which appear unchanged. IMPRESSION: 1. LINES AND TUBES DESCRIBED. 2. SMALL BILATERAL PLEURAL EFFUSIONS AND BIBASILAR INFILTRATES, UNCHANGED.
[2017-12-21] MEDS ORDERED: Magnesium Sulfate 2 GM IV* 2 GM/50 ML BAG IVPB ONE (08:58)
[2017-12-21] MEDS ORDERED: Magnesium Sulfate IV* 2 GM in NS 0.9% 100 ML* 100 ML IVPB ONE (10:00)
--- NOTE | 2017-12-21 11:10 | PRO ---
BRONCHOSCOPY REPORT: DATE OF PROCEDURE: 12/20/17 PROCEDURE PERFORMED: Bronchoscopy for therapeutic reasons and for bronchoalveolar washings. DESCRIPTION OF PROCEDURE: Informed consent was obtained from the patient's father who is healthcare proxy as the patient is not able to provide her own consent. ET tube that was placed in field by EMS was a 6-Dominican. Peak pressures were elevated. ET tube was exchanged to 7.5 ET tube over Bougie. A flexible Pentax bronchoscope was utilized at bedside for airway inspection. ETT tube positioning was confirmed to be 1 cm above the level of jacklyn and was withdrawn a centimeter to have it 2 cm above the level of jacklyn. Bronchoscope was then advanced into the right bronchial tree, which was inspected. The patient had thick brown yellow secretions plugging up and pouring into the ET tube, which were suctioned out. Copious amounts of secretions were noted on both sides, which were suctioned. The patient appeared to have aspiration episode, food particles were also aspirated. A specimen was obtained from with bronchial washings for microbiological cultures. The patient tolerated the procedure well. She did not need any sedation during the procedure. Vent settings were adjusted and alarms were adjusted during the procedure. Will start titrating the FIO2. [id number]/CPS #: [id number] [facility]PITALEdison
--- NOTE | 2017-12-21 15:37 | PN ---
Date of Service: 12/21/17 - [facility] note Critical Care Services: Pt seen and examined at bedside. Was hypotensive and was started on LEvophed Brain protocol and apnea testing repeated this am, no brain stem function noted Family was updated last night, again over phone this am Low grade fevers this am Vital Signs: Temp Pulse Resp BP SpO2 FiO2 98.2 F 83 20 100/59 96 100 12/21/17 15:00 12/21/17 15:00 12/21/17 15:00 12/21/17 15:00 12/21/17 15:00 12/21 12:00 Physical Exam: Gen: Pt lyig in bed, no response to stimuli HEENT: ETT, OGT+ Lungs: Diminished air entry at bases Cardiac: S1, S2+, regular Abdomen: Soft, BS absent Extremities: No edema Neuro: Pupils dilated, No response to painful stimuli, no brain stem functioning Fluid Balance (Past 24 Hours): I= 1420 O=367 [id number] Intake & Output 12/19/17 12/20/17 12/21/17 12/22/17 06:59 06:59 06:59 06:59 Intake Total 2962 4342.2 4965.3 1420 Output Total 1734 3162 3430 367 Balance 1228 1180.2 1535.3 1053 Weight 132 lb 11.492 oz 143 lb 4.807 oz 138 lb 3.677 oz Intake: IV Fluids 2962 4142 3740.3 1157 D5 1/2 NS 1445 3635 1157 NS (0.45%) 1002 NS (0.9%) 2962 1695 105.3 IVPB 359 168 ABX - CEFEPIME 114 ABX - VANCOMYCIN 245 D5 1/2 NS 168 Medicated IV 200.2 731 95 CC - Norepinephrine/ 200.2 531 95 Levophed KCl 200 Oral 0 0 Boyd Irrigate Amount 135 Output: NG Tube Drainage Amount 500 500 G Tube 150 220 Urine 179 Boyd 1055 2512 3210 367 Other: Date of Last Bowel 12/20/17 Movement # Bowel Movements 0 1 Estimated Stool Amount Small Labs: Laboratory Results - last 24 hr 12/21/17 12/21/17 12/21/17 06:15 06:15 09:48 WBC 7.3 RBC 3.77 L Hgb 10.1 L Hct 30 L MCV 81 MCH 27 MCHC 33 RDW 17 H Plt Count 312 MPV 7.7 Neut % (Auto) 64.7 Lymph % (Auto) 20.1 L [place] % (Auto) 8.8 H Eos % (Auto) 5.5 Baso % (Auto) 0.9 Absolute Neuts (auto) 4.8 Absolute Lymphs (auto) 1.5 Absolute Monos (auto) 0.6 Absolute Eos (auto) 0.4 Absolute Basos (auto) 0.1 Absolute Nucleated RBC 0 Nucleated RBC % 0 Patient Temperature Not Reportable ABG pH 7.38 ABG pH (Temp Correct) Not Reportable ABG pCO2 40 ABG pCO2 (Temp Corrct Not Reportable ABG pO2 297 H ABG pO2 (Temp Correct Not Reportable ABG HCO3 23.9 ABG O2 Saturation 99.2 H ABG Base Excess -1.3 Respiration Rate 20 O2 Delivery Device vent Ventilator Type 450 Vent Mode cmv FiO2 100 Inspiratory Time Not Reportable PEEP 5 Pressure Support Not Reportable Pressure Control Not Reportable EPAP Not Reportable IPAP Not Reportable BiPAP Not Reportable Sodium 143 Potassium 3.4 L Chloride 113 H Carbon Dioxide 24 Anion Gap 6 BUN 19 Creatinine 1.05 H Est GFR ( Amer) 71.4 Est GFR (Non-Af Amer) 59.0 BUN/Creatinine Ratio 18.1 Glucose 100 Calcium 7.7 L Magnesium 1.4 L 12/21/17 10:04 WBC RBC Hgb Hct MCV MCH MCHC RDW Plt Count MPV Neut % (Auto) Lymph % (Auto) [place] % (Auto) Eos % (Auto) Baso % (Auto) Absolute Neuts (auto) Absolute Lymphs (auto) Absolute Monos (auto) Absolute Eos (auto) Absolute Basos (auto) Absolute Nucleated RBC Nucleated RBC % Patient Temperature Not Reportable ABG pH 7.06 L* ABG pH (Temp Correct) Not Reportable ABG pCO2 93 H* ABG pCO2 (Temp Corrct Not Reportable ABG pO2 269 H ABG pO2 (Temp Correct Not Reportable ABG HCO3 20.8 ABG O2 Saturation 99.3 H ABG Base Excess -5.3 L Respiration Rate Not Reportable O2 Delivery Device Ventilator Type Not Reportable Vent Mode Not Reportable FiO2 6 Inspiratory Time Not Reportable PEEP Not Reportable Pressure Support Not Reportable Pressure Control Not Reportable EPAP Not Reportable IPAP Not Reportable BiPAP Not Reportable Sodium Potassium Chloride Carbon Dioxide Anion Gap BUN Creatinine Est GFR ( Amer) Est GFR (Non-Af Amer) BUN/Creatinine Ratio Glucose Calcium Magnesium Impression: 37 y o f with polysubstance abuse, possible lupus admitted after found to be unresponsive in hotel floor after possibly injecting cocaine, drug screen also positive for opiates. Pt was found to be apneic and pulseless when EMS arrived, CPR performed for 5 min with return of spontaneous circulation was intubated and transferred to ED. Patient with no evidence of brain stem function, remains intubated on full support 1. Cardiac arrest after Cocaine overdose 2. Possible suicide attempt, h/o psychiatric illness and prior hospitalization to mental health unit 3. Possible brain after hypoxemic insult, awaiting confirmation 4. Hypercapnic resp failure s/p cardiac arrest, eucapnic on ventilator 5. Hypotension, ? septic shock versus sec to high PEEP 6. Shock liver 7. Possible PNA Plan: Brain protocol performed by neurologist and myself this am. No brain stem function noted Apnea test was positive Pt declared brain at 10:15 am on 12/21/17. Patients father and other family members were informed. Awaiting family`s arrival prior to terminal extubation. Father signed DNR yesterday. He is next of kin, he made it clear yesterday that he doesnot want to prolong her life on life support measures if there is no hope for meaningful recovery. Awaiting familys arrival Will maintain her on Levophed, discontinue all other meds and not escalate any care.
--- NOTE | 2017-12-21 15:44 | PN ---
Progress Note - Progress Note Date of Service: 12/21/17 SOAP: Neurology follow up note Subjective: Objective: [] Assessment: [] Plan: []
--- NOTE | 2017-12-21 15:57 | PN ---
Progress Note - Progress Note Date of Service: 12/21/17 SOAP: Neurology follow up note Date of service: 12/21/2017 Subjective: There was no change in the patient's status since last night. She continues to be supported on ventilator. Objective: Vital Signs Temp Pulse Resp BP Pulse Ox 97.9 F 81 20 100/60 96 12/21/17 16:15 12/21/17 16:15 12/21/17 16:00 12/21/17 16:15 12/21/17 16:15 The patient is non-responsive to noxious stimulation. Pupils are fixed at 5 mm bilaterally, non-reactive to light. No corneal reflex was present. Oculocephalic reflex was absent. Then proceeded to apnea test. All the prerequisites for the test were met. Her temperature was 37 to 37.1 centigrade. Systolic blood pressure maintained between 108 to 119 mm Hg throughout test. No clear metabolic abnormalities prior to the test. She had preoxygenation with 100 % FiO2 for 10 minutes. Arterial blood gas pre-test showed a pH of 7.38, PCO2 40. The ventilator was disconnected and oxygen was provided via a pediatric catheter at the level of the jacklyn at 6 L/min. The patient had no observed respiration throughout the test for 10 minutes. Post test, blood gas was checked again with pH of 7.06, PCO2 93. Test was completed at 10:08. IMPRESSION AND PLAN: Impression is that of persistent presence of respiratory drive in spite of the absence of all other brainstem reflexes. The patient therefore does not fit criteria for brain . Father is reportedly coming in this afternoon. I will discuss her current status with him at that time. At this point, it is clear she has suffered a severe brain injury with [id number] likelihood of recovery. However, she does not fit clinical criteria for brain at this point in time. I will post another note after I see the father and discuss the situation with him. Assessment and Plan: Patient is a 37-year-old female with history of cocaine and opiates overdose and s/p cardiac arrest who came to the hospital on 12/18/17 around 9pm, currently almost 60 hours post hypoxic brain injury. Her apnea test meets the criteria for brain with increase of PCO2 > 20 pre and post-test. The patient's examination including the apnea test confirms absence of brain and brainstem function and brain . The above was communicated with the patient's father by the ICU team. Time spent at bedside including completing the apnea test at least 25 minutes.
[2017-12-21 16:18] VITALS: BP 100/60
--- NOTE | 2017-12-22 03:56 | DS ---
DISCHARGE SUMMARY/EXPIRATION SUMMARY: DATE OF : 12/21/17 TIME OF : The patient determined to be brain at 10:15 a.m. on , terminally extubated, and was pronounced at 4:50 p.m. DATE OF HOSPITAL ADMISSION: 12/18/17 CAUSE OF : Anoxic brain damage after drug overdose with cardiopulmonary arrest and brain stem dysfunction. BRIEF HISTORY OF HOSPITALIZATION: The patient is a 37-year-old female with a history of polysubstance abuse, hep C, lupus, who was brought in to the hospital by EMS on 12/18/17 after being called for unresponsiveness in a hotel bathroom floor. The patient found on hotel floor, was possibly injecting cocaine, needle seen on her forearm. Tox screen also positive for cocaine and opiates. The patient was apneic and pulseless when EMS arrived, CPR performed for 5 minutes with return of spontaneous circulation, was intubated in the field and brought into the emergency room. The patient remained intubated on full vent support. The patient had dilated pupils. CT brain showed evidence of anoxic damage. The patient did not have any neurological recovery since admission. She also became hypotensive requiring vasopressor support. The patient was noted to be having elevated peak pressures and ventilator alarms showing high-peak pressures, emergency bronchoscopy was performed on 12/20/17, the patient noted to have thick secretions with concern for aspiration of food which was all suctioned out with improvement in O2 saturations and also pressure requirements came down with improvement in tidal volumes. The patient' s family arrived, included her father, her elder son, who is 15 years old, and one of the sisters at bedside. The patient's father did not want to keep her alive on artificial support. Apnea testing was done on 12/20/17 which revealed no brain stem functioning. There was concern of 1 or 2 breaths prior to being disconnected from the ventilator. Test was repeated again today by a neurologist. Please refer to Dr. Paiz Neuro consult note for further details. The patient was found to be without any brain stem activity and also without any respiratory efforts and apnea testing consistent with brain . Her CO2 on blood gas has increased significantly post apnea testing consistent with brain . These findings were discussed with her father, who wanted to perform terminal extubation once he arrived. The patient's father arrived around 4:30, requested ventilator support be removed, Levophed was also stopped. The patient was terminally extubated in the ICU at around 4:42 p.m. The patient was pronounced at around 4:50 p.m. Father at bedside throughout the time. Father declined autopsy and organ donation. This is a brief summary of her ICU stay. Please refer to history and physical and other daily progress notes for further details. [id number] #: [id number] [facility]TD[facility]
== END 2017-12-21 16:50 | disposition expired | DRG 812 ==
LOC: EDBD → EDUNIT# → ED 21:41 → EEVIPCON 22:44 → ICU 22:44
PROVIDERS: ADMIT Internal Medicine; ATTEND Internal Medicine
PROC: 3E043XZ Introduction of Vasopressor into Central Vein, Percutaneous Approach (ICD-10-PCS; principal; 2017-12-18)
PROC: 05HM33Z Insertion of Infusion Device into Right Internal Jugular Vein, Percutaneous Approach (ICD-10-PCS; 2017-12-18)
PROC: B543ZZA Ultrasonography of Right Jugular Veins, Guidance (ICD-10-PCS; 2017-12-18)
PROC: 0B9K8ZX Drainage of Right Lung, Via Natural or Artificial Opening Endoscopic, Diagnostic (ICD-10-PCS; 2017-12-18)
PROC: 5A1945Z Respiratory Ventilation, 24-96 Consecutive Hours (ICD-10-PCS; 2017-12-18)
DX: T40.601A Poisoning by unspecified narcotics, accidental (unintentional), initial encounter (principal); J96.92 Respiratory failure, unspecified with hypercapnia; G93.6 Cerebral edema; K72.01 Acute and subacute hepatic failure with coma; N17.9 Acute kidney failure, unspecified; E87.0 Hyperosmolality and hypernatremia; G93.1 Anoxic brain damage, not elsewhere classified; T40.5X1A Poisoning by cocaine, accidental (unintentional), initial encounter; F11.10 Opioid abuse, uncomplicated; J45.909 Unspecified asthma, uncomplicated; F90.9 Attention-deficit hyperactivity disorder, unspecified type; F41.0 Panic disorder [episodic paroxysmal anxiety]; F43.10 Post-traumatic stress disorder, unspecified; F31.9 Bipolar disorder, unspecified; I95.9 Hypotension, unspecified; Z66 Do not resuscitate; I46.8 Cardiac arrest due to other underlying condition; D64.9 Anemia, unspecified; F60.3 Borderline personality disorder; Z91.048 Other nonmedicinal substance allergy status; Z98.51 Tubal ligation status; Z83.3 Family history of diabetes mellitus; Z81.8 Family history of other mental and behavioral disorders; Z81.4 Family history of other substance abuse and dependence; Z72.89 Other problems related to lifestyle; Y92.59 Other trade areas as the place of occurrence of the external cause
CPT/HCPCS: 31622; 36415; 36600; 70450; 71045; 80048; 80053; 80076; 80307; 80320; 80329; 81003; 81015; 82550; 82803; 83605; 83735; 83930; 83935; 84100; 84300; 84443; 84484; 84702; 85025; 85610; 85730; 87040; 87070; 87077; 87086; 87186; 87205; 87641; 93005; 94003; 94640; 99285; A9270-GY; G0480; J0692; J1644; J1940; J2597; J3370; J3475; J3480